=== PATIENT | female | born 1990 | race Caucasian/White ===

== ENCOUNTER 2019-05-06 04:50 | Inpatient (IN) | payer MEDICAID, SELFPAY ==
[2019-05-06] VITALS (24 sets, daily range): BP systolic 86–113; BP diastolic 37–77; PULSE 66–88; RESP 11–20; TEMP 36.1–37.1; O2SAT 97–100; BMI 38.7
[2019-05-06] MEDS: Lactated Ringers 1,000 ML 999 ML IV (05:03)
[2019-05-06 05:18] LABS: Absolute Lymphocyte Count 1.87 X10^3/uL (0.83-4.51); Absolute Neutrophil Count 6.6 X10^3/uL (2.0-7.7); Basophil# 0.02 X10^3/uL; Basophil% 0.2 % (0-1); Eosinophil# 0.07 X10^3/uL; Eosinophils% 0.8 % (0-5); Hematocrit 35.1 % (37-47); Hemoglobin 11.7 g/dL (12.0-15.0); Lymphocyte # 1.87 X10^3/ul (4.0); Mean Corp Hgb Conc 33.3 g/dL (32-36); Mean Corpuscular Hgb 29.3 pg (27.0-32.0); Monocyte# 0.67 X10^3/uL; Monocyte% 7.2 % (0-10); NRBC Flagged by Analyzer 0 % (0-5); Neutrophil # 6.57 X10^3/uL (2.7-7.7); Neutrophil % 70.4 % (47-70); Platelet Count 162 K/mm3 (150-450); RBC Distribution Width CV 15.3 % (11.6-14.6); RBC Distribution Width SD 48.9 fl (35.1-43.9); Red Blood Count 3.99 M/mm3 (4.2-5.4); White Blood Count 9.3 K/mm3 (4.4-11.0)
[2019-05-06] MEDS: Lactated Ringers 1,000 ML 150 ML IV (06:12)
--- NOTE | 2019-05-06 06:22 | NURSING ---
pt states she is unsure if she has her BTO authorization paperwork signed. this RN charted that the paperwork was not signed. Dr. Llamas updated on this.
[2019-05-06 06:51] LABS: Bedside Glucose 81 mg/dL (70-110)
[2019-05-06] MEDS: Sodium Citrate/Citric Acid 30 ML UDC PO (06:54)
[2019-05-06] MEDS: Cefazolin 2 GM in 0.9% Normal Saline 100 ML IV (07:24)
[2019-05-06] MEDS: Oxytocin 30 units/NS 500 ml 30 UNITS/500 ML IV.SOLN 167 UNITS IV (07:40)
[2019-05-06] MEDS: Ketorolac 30 MG/ML Syringe IV ×3 (08:22→18:40)
--- NOTE | 2019-05-06 08:27 | PCM.OPRPT ---
Report of Operation Date of Procedure: 05/06/19 Pre-Operative Diagnosis: Prior section Post-Operative Diagnosis: Same Surgery/Procedure Performed:: Repeat low transverse section Description of Surgical Findings:: Normal maternal uterus & adnexa. Thin lower uterine segment. Some scar tissue involving the bladder flap. basket assembler: Sully Childers Type of Anesthesia:: Spinal Special Medications: methylene blue - to back fill the bladder Specimen's removed: placenta Drains: gomez Estimated Blood Loss (mL): 700ml Fluids Replaced: 1200ml - Complications none - Admit VTE Documentation VTE Present on Admission: No VTE Mechan Device Prophylaxis: SCD's Delivery Classification: Scheduled Final KATI: 05/11/19 Gestational age: 39 Weeks and 2 Days Indications for : Repeat Elective Description of Procedure: Patient taken to OR where spinal was placed. She was prepped and draped in normal sterile fashion in a dorsal supine position with a leftward tilt. After ensuring adequacy of anesthesia the Pfannensteil skin incision was made and carried through to the underlying fascia with a bovie. The fascia was incised in the midline and carried laterally with the Artis scissors. The rectus muscles were in the midline and the peritoneum was entered bluntly. The bladder flap was dissected down carefully with the Metzenbaum scissors and blunt dissection. The uterus was incised in a transverse fashion and then incision extended with cephalocaudad traction. The fetus was vertex and the head was brought to the incision. With good fundal pressure the head easily delivered. The head was gently guided to allow delivery of anterior & posterior shoulders. No excess traction placed on head. The body delivered easily. The 3VC cord was clamped and cut (in delayed fashion) and the handed off to the waiting RN. The placenta was delivered w/ gentle traction and fundal massage and the uterus was exteriorized and cleared of all clots and debris. The uterine incision was closed with 2 x 1 vicryl suture in a running locked fashion. The bovie was used to further obtain further hemostasis of the uterine incision. 2 additional figure of 8 sutures were used to obtain excellent hemostasis. The bladder was back filled with 300ml methylene blue dyed saline to ensure bladder integrity. The uterus was returned to the peritoneal cavity. The pelvis was irrigated & then cleared of all clots and debris. The uterine incision was reexamined and found to be hemostatic. Some cassandra was placed over the uterine incision & bladder flap due to the denuded areas. The parietal peritoneum was reapproximated with running vicryl suture. The fascia was closed with looped PDS suture in a running standard fashion. The subcutaneous tissue was examined & any bleeding bovie cauterized. The subcutaneous tissue was reapproximated with plain gut suture. The skin was closed in a subcuticular fashion by the COIN DEALER with me present in the labor and delivery suite. I performed the remainder of the procedure w/ assistance. Amniotic Membrane Rupture Type: Artificial Amniotic Fluid Description: Clear Drain: Gomez to straight drain Cord Entanglement: None Cord Vessel Description: 3 Vessels Gender: Female (1 minute): 9 (5 minute): 9 Delayed cord clamping: Yes Pre-op Antibiotic Given: Ancef 2 grams IV x1
--- NOTE | 2019-05-06 08:31 | PCM.HP.OB ---
History Date of Admission: 09/11/17 Final KATI: 05/11/19 Gestational age: 39 Weeks and 2 Days History of this : This is a 29 year-old, G [], P [], at 39 weeks gestational age. Medical History: Medical History (Last Updated 05/06/19 @ 08:32 by Sylvester Palumbo) delivery delivered O82 Surgical History: Surgical History (Last Updated 05/06/19 @ 08:32 by Sylvester Palumbo) Hx of cholecystectomy Z90.49 Allergies No Known Allergies Allergy (Verified 05/06/19 05:18) Home Medications: Home Medications Vits [Prenatabs FA] 1 tablet PO DAILY 07/19/17 Ibuprofen [Motrin] 600 mg PO Q6H PRN #60 tablet 09/13/17 Smoking Status: Never smoker Alcohol: None History Past Pregnancies: Past Pregnancies Delivery Date Name GA/Weeks Outcome Route Weight Infant Gender Labor Length Anesthesia Delivery Location Provider FOB Labs: See [facility] H[facility]P Physical Exam General: Alert, Oriented x3 Cardiovascular: Regular rate, Regular Rhythm Lungs: Clear to auscultation, Normal air movement Abdomen: Soft, Non Tender, Non-Distended Extremities:: No edema Neurological: Cranial nerves II-XII grossly intact Estimated gestational size: Appropriate for gestational size Assessment/Plan This is a 29 year-old female at 39&3 weeks gestational age. Admit to L&D Plan for repeat section
[2019-05-06] MEDS: Lactated Ringers 1,000 ML 100 ML IV ×3 (09:00→16:31)
--- NOTE | 2019-05-06 11:15 | NURSING ---
Pt low BP. Called Dr. Palumbo with update of BP and no vaginal bleeding. Order to give pt 1000ml bolus of LR over 2 hours and then continue at ordered rate of 100ml/hr.
--- NOTE | 2019-05-06 15:10 | CASEMGMT ---
Social Work Referral Date: 05/06/19 Date of Assessment: 05/06/19 Reason for Consult: Mother of baby (MOB) with a History of Anxiety Informant: Nursing staff, Chart Personal Status Mentation: MOB A&Ox3 Present during assessment: MOB, Father of Baby (FOB) and . Hx : 4 Hx Para: 2 Gender: Female Name: Coleen James (1min): 9 (5min): 9 Care: Late - due to insurance per MOB Alleged father: Jackson James Alleged father involved: Yes Length of Relationship with alleged father of baby: 3 years with being for the past year. FOB Mental Health/AOD/Domestic Violence Hx: FOB with a history of schizophrenia that has been managed well with medication per MOB and FOB. FOB reporting to smoke tobacco, but to smoke outside only. FOB Employment: FOB is currently on disability. Number of Children in the home: This will be fourth child for MOB. Shakira age 9, and Марина and Gina (twins) that are 19months old. Custody Comments: MOB has custody of all children. Марина and Gina share paternity with this . Shakira's father has visitations. MOB reporting no concerns with dynamics with Shakira's father. Living Arrangements: MOB, FOB, and children all live in a private home. Education: High School Diploma Employment: Unemployed, main source of income is FOB's disability. Family Dynamics/Relationships: MOB reporting positive relationships and supports Supports: MOB identifying FOB and family as supportive. MOB reporting that FOB's family comes every month for a week to help with the children. Transportation: NO transportation concerns. Substance Abuse Hx and Current Pattern of Use MOB denies any Alcohol, Methamphetamine, Cocaine, Marijuana, Prescriptions Drugs, Tobacco, and Heroin use. Mental Health Hx and Current Status MOB reporting to have a history of anxiety but that symptoms have resolved for some time. Items/Skills List for Infants Care Supplies: MOB reporting to have all needed supplies (crib, car seat, infant clothing, etc.) Bonding With Infant: MOB reporting to be feeling a connection with infant. Observed Maternal/Paternal Child interaction: MOB holding infant during assessment. MOB gazing at infant often. Emotional Assessment: MOB presenting with a positive affect. MOB engaged in conversation. FOB also engaged in conversation and reporting a connection with infant. Control: MOB wanting to have a tubal completed and plans to follow up with physician on getting this completed. Resources JFS: [place] [employer] insurance. WIC: Already established with. People to People: n/a Community Action: n/a Help Me Grow: Declining referral Children Protective Services Hx: No history Intervention: Social Work assessment Assessment Met with MOB, FOB and in room. MOB reporting to be excited about having infant in family. MOB reporting that was not planned but accepted. MOB and FOB reporting no concerns with returning to home. MOB reporting that anxiety symptoms have now resolved for several years. MOB with no mental health concerns. This socia worker educating MOB on risk for depression signs and symptoms. Support provided throughout assessment. Nursing staff notified of social work specialist assessment. Plan: Infant and MOB to discharge to home with FOB and other children. Kwaku Del Valle MSW, JOHN
[2019-05-06] MEDS: Senna/Docusate Sodium 1 Tablet PO (22:05)
[2019-05-07] VITALS (9 sets, daily range): BP systolic 91–111; BP diastolic 50–62; PULSE 71–108; RESP 14–18; TEMP 36.1–36.9; O2SAT 97–99
[2019-05-07] MEDS: Ketorolac 30 MG/ML Syringe IV ×3 (00:06→12:05)
[2019-05-07 05:15] LABS: Hematocrit 32.3 % (37-47); Hemoglobin 10.5 g/dL (12.0-15.0); Mean Corp Hgb Conc 32.5 g/dL (32-36); Mean Corpuscular Hgb 29.1 pg (27.0-32.0); Mean Corpuscular Volume 89.5 fL (81-99); Mean Platelet Vol. 9.4 fl (6.2-12.0); Platelet Count 135 K/mm3 (150-450); RBC Distribution Width CV 15.5 % (11.6-14.6); RBC Distribution Width SD 50.5 fl (35.1-43.9); Red Blood Count 3.61 M/mm3 (4.2-5.4); White Blood Count 8.2 K/mm3 (4.4-11.0)
[2019-05-07] MEDS: 0.9% Saline Lock 10 ML Syringe IV ×2 (05:16→12:05)
[2019-05-07] MEDS: Acetaminophen 500 MG Tablet 1000 MG PO (05:17)
--- NOTE | 2019-05-07 06:41 | PCM.PN.OB ---
Subjective: Pain mostly controlled. Denies concerns. - Physical Exam General: Alert, Oriented x3 Abdomen: Soft, Non Tender, Non-Distended - ff mid & below; inc - bandage c/d/i Extremities: No Calf Tenderness Neurological: Cranial nerves II-XII grossly intact Vital Signs Temp Pulse Resp BP Pulse Ox 97.2 F L 81 18 91/62 99 05/07/19 05:00 05/07/19 05:21 05/07/19 05:21 05/07/19 05:00 05/07/19 05:21 Oxygen Delivery Method Room Air Weight: 218 lb 6.4 oz Body Mass Index (BMI) 38.7 Intake and Output for Last 24 Hours 05/05/19 05/06/19 05/07/19 23:59 23:59 23:59 Intake Total 3294 / 3294 934 / 934 Output Total 1150 / 1150 1200 / 1200 Balance 2144 / 2144 -266 / -266 Laboratory Tests Past 24 Hrs 05/07/19 05:07 WBC 8.2 RBC 3.61 L Hgb 10.5 L Hct 32.3 L MCV 89.5 MCH 29.1 MCHC 32.5 RDW Std Deviation 50.5 H RDW Coeff of Grady 15.5 H Plt Count 135 L MPV 9.4 POC Glucose 05/06/19 06:46 POC Glucose 81 Medical Necessity - Tobacco Use Smoking Status: Never smoker Assessment/Plan POD#1 HEME - cbc reviewed GI - ADAT RAUL - gomez, adequate UOP Routine care
[2019-05-07] MEDS: Docusate Sodium 100 MG Capsule PO (10:31)
[2019-05-07] MEDS: Senna/Docusate Sodium 1 Tablet PO (10:31)
[2019-05-07] MEDS: oxyCODONE 5 MG Tablet PO ×3 (10:38→21:31)
[2019-05-07] MEDS: Naproxen 250 MG Tablet PO (20:13)
[2019-05-08 01:30] VITALS: BP 90/46; PULSE 71; RESP 16; TEMP 36.5
[2019-05-08] MEDS: Senna/Docusate Sodium 1 Tablet PO ×2 (01:40→08:43)
[2019-05-08] MEDS: oxyCODONE 5 MG Tablet PO ×3 (01:40→13:02)
--- NOTE | 2019-05-08 08:31 | PCM.PN.OB ---
Subjective: Pain well controlled. Average lochia. Tolerating regular diet. Positive flatus, no bowel movement yet. Ambulating without difficulty. - Physical Exam General: Alert, Cooperative, No apparent distress Abdomen: Soft, Distended - Mildly, softly, Tender - Appropriately Extremities: Edema - 1+ Skin: Incision - Bandage is clean dry and intact Vital Signs Temp Pulse Resp BP Pulse Ox 97.7 F L 71 16 90/46 L 98 05/08/19 01:30 05/08/19 01:30 05/08/19 01:30 05/08/19 01:30 05/07/19 13:31 Oxygen Delivery Method Room Air Weight: 99.065 kg Body Mass Index (BMI) 38.7 Intake and Output for Last 24 Hours 05/06/19 05/07/19 05/08/19 23:59 23:59 23:59 Intake Total 3294 / 3294 934 / 934 Output Total 1150 / 1150 1600 / 1600 Balance 2144 / 2144 -666 / -666 Medical Necessity - Tobacco Use Smoking Status: Never smoker Assessment/Plan Postoperative day #2 status post repeat . Patient and are doing well. is bottlefeeding. Offered patient to discharge home today, will see how she is doing after lunch.
[2019-05-08 08:40] VITALS: BP 102/48; PULSE 83; RESP 16; TEMP 36.7; O2SAT 97
[2019-05-08 13:53] VITALS: BP 107/60; PULSE 88; RESP 16; TEMP 36.9; O2SAT 97
--- NOTE | 2019-05-08 17:56 | DCINST_ITS ---
Discharge Diet: No Restrictions Discharge Activity: Return to Normal Activity, May Not Drive - for 2 weeks, May not drive while taking narcotic pain medications., May Shower, May Take a Tub Bath - in 7 days. May resume sexual activity in: 4-6 weeks Lifting Restrictions: 20 pounds Additional Activity Instructions:: Nothing in the vagina for 4-6 weeks. You may return to work/school in 6 weeks. Call your doctor if your incision/area has: Continuous Slow Oozing, Sudden Increased Bleeding, Increased Pain/ Swelling, Increased Redness, Foul Smelling Discharge Call your doctor if you observe: Fever of 101 or Higher, Using more than one pad per hour - for 2 hours Suture Line Care: Avoid Pulling/Pushing, Avoid Pinching/Bending Cleanse incision/area with: Keep Dressing Clean & Dry Additional Instructions: If you experience any of the following, contact your healthcare provider. * Bleeding that soaks a pad every hour for 2 hours * Fever 100.4 or higher * Unrelieved incision or abdominal pain * Swelling, redness, discharge or bleeding from your incision or episiotomy site * Your incision begins to separate * Problems urinating (including inability to urinate or burning while urinating). * Visual changes * Severe headache * Flu-like symptoms * Pain or redness in one of both of your breasts * Pain, warmth, tenderness or swelling in your legs, especially the calf area * Frequent nausea and vomiting * Symptoms of depression or anxiety If you experience any of the following, call 911 or go to the nearest Emergency Room. * Chest pain * Problems breathing * Seizure activity * Partial or complete paralysis of a body part, slurred speech, weakness or drooping of the face, or a sudden inability to walk or hold your balance Allergies/Adverse Reactions: Allergies No Known Allergies Allergy (Verified 05/06/19 05:18) Medications to take at Discharge Vits [Prenatabs FA] 1 tablet PO DAILY 07/19/17 Acetaminophen [Tactinal] 1,000 mg PO Q6H PRN PRN #40 tab 05/08/19 Ibuprofen [Motrin] 600 mg PO Q6H PRN #60 tab 05/08/19 Oxycodone [Oxyir] 5 - 10 mg PO Q8 PRN 7 Days #28 tablet 05/08/19 The following prescriptions were given: Ibuprofen [Motrin] 600 mg PO Q6H PRN #60 tab PRN Reason: Pain Transmission Status: Pending to [id number] Oxycodone [Oxyir] 5 - 10 mg PO Q8 PRN 7 Days #28 tablet PRN Reason: Severe Pain (-07/24) Transmission Status: Received by [id number] Acetaminophen [Tactinal] 1,000 mg PO Q6H PRN PRN #40 tab PRN Reason: Mild Pain (-12/22) Transmission Status: Pending to [id number] Follow-Up: Call to make an appointment with your doctor for an incision check in 1-2 weeks. You will also need a 6 week post- follow up appointment. Test results from this visit will be discussed in further detail at your follow- up appointment, if applicable. Please Follow Up With: Sylvester Palumbo - Call to make an appointment for an incision check in 1-2 [phone] When: You will need a post check in 6 weeks. Primary Care Physician: Dakota Sanchez DO [Primary Care Provider] -
--- NOTE | 2019-05-08 17:57 | PCM.DC.SUM ---
Discharge Date and Diagnosis Date of Admission: 09/11/17 Date of Discharge: 05/08/19 Hospital Course and Treatment Operations: - - repeat LTCS Procedures: None Summary of Care Provided: The patient is a 29 year old who presented for repeat c/s at 39 weeks. This was performed without difficulty. She had mild acute blood loss anemia appropriate for blood loss during the surgery. By postoperative day #2 she was ambulating, urinating tolerating regular diet without difficulty. She was discharged home with routine instructions and prescriptions. She is to follow-up in the office in 1-2 in 6 weeks or as needed. [] - Physical Exam Vital Signs Temp Pulse Resp BP Pulse Ox 98.4 F 88 16 107/60 97 05/08/19 13:53 05/08/19 13:53 05/08/19 13:53 05/08/19 13:53 05/08/19 13:53 Oxygen Delivery Method Room Air Weight: 99.065 kg Body Mass Index (BMI) 38.7 Intake and Output for Last 24 Hours 05/06/19 05/07/19 05/08/19 23:59 23:59 23:59 Intake Total 3294 / 3294 934 / 934 Output Total 1150 / 1150 1600 / 1600 Balance 2144 / 2144 -666 / -666 Discharge Diet: No Restrictions Discharge Activity: Return to Normal Activity, May Not Drive - for 2 weeks, May not drive while taking narcotic pain medications., May Shower, May Take a Tub Bath - in 7 days. May resume sexual activity in: 4-6 weeks Additional Activity Instructions:: Nothing in the vagina for 4-6 weeks. You may return to work/school in 6 weeks. Call your doctor if your incision/area has: Continuous Slow Oozing, Sudden Increased Bleeding, Increased Pain/ Swelling, Increased Redness, Foul Smelling Discharge Call your doctor if you observe: Fever of 101 or Higher, Using more than one pad per hour - for 2 hours Suture Line Care: Avoid Pulling/Pushing, Avoid Pinching/Bending Cleanse incision/area with: Keep Dressing Clean & Dry Home Medications: Medications to take at Discharge Vits [Prenatabs FA] 1 tablet PO DAILY 07/19/17 Acetaminophen [Tactinal] 1,000 mg PO Q6H PRN PRN #40 tab 07/25/19 Ibuprofen [Motrin] 600 mg PO Q6H PRN #60 tab 05/08/19 Oxycodone [Oxyir] 5 - 10 mg PO Q8 PRN 7 Days #28 tab 05/08/19 Following Prescrptions Were Given to Patient: Ibuprofen [Motrin] 600 mg PO Q6H PRN #60 tab PRN Reason: Pain Transmission Status: [id number] Oxycodone [Oxyir] 5 - 10 mg PO Q8 PRN 7 Days #28 tab PRN Reason: Severe Pain (6-07/24) Transmission Status: Received by [id number] Acetaminophen [Tactinal] 1,000 mg PO Q6H PRN PRN #40 tab PRN Reason: Mild Pain (-12/22) Transmission Status: [id number] Primary Care Physician: Dakota Sanchez DO [Primary Care Provider] - Please Follow Up With: Sylvester Palumbo - Call to make an appointment for an incision check in 1-2 [phone] When: You will need a post check in 6 weeks. Please Follow Up With: Sylvester Palumbo When: Please call office for appointment in 6 weeks. Medical Necessity - Tobacco Use Smoking Status: Never smoker Meaningful Use Info Meaningful Use Diagnoses (Choose all that apply): None applicable
--- NOTE | 2019-05-12 19:55 | NURSING ---
follow up call done, patient doing well, denies needs or questions
== END 2019-05-08 16:43 | disposition home or self-care (01) | DRG 540 ==
PROVIDERS: Obstetrics & Gynecology; Admitting Provider Obstetrics & Gynecology; Family Provider Student in an Organized Health Care Education/Training Program; PCP Student in an Organized Health Care Education/Training Program; Referring Provider Obstetrics & Gynecology; Visit Provider Obstetrics & Gynecology
PROC: 10D00Z1 Extraction of Products of Conception, Low, Open Approach (ICD-10-PCS; CPT 59514; principal; 2019-05-06 07:00)
DX: O34.211 Maternal care for low transverse scar from previous cesarean delivery (principal); O90.81 Anemia of the puerperium; D62 Acute posthemorrhagic anemia; Z90.49 Acquired absence of other specified parts of digestive tract; Z3A.39 39 weeks gestation of pregnancy; Z37.0 Single live birth
CPT/HCPCS: 82962; 85025; 85027; 86850; 86900; 99218; J7120; A4216; G0378; J2405; Q9968

== ENCOUNTER 2021-02-09 17:34 | Observation (INO) | payer MEDICAID, SELFPAY ==
[2019-05-06 05:24] VITALS: BMI 38.7
[2021-02-09 17:34] VITALS: BP 142/82; PULSE 91; RESP 16; TEMP 36.9; O2SAT 99; BMI 30.1
--- NOTE | 2021-02-09 17:58 | CT_ITS ---
STUDY: CT ABDOMEN AND PELVIS WITH CONTRAST REASON FOR EXAM: Female, 30 years old. Intermittent abdominal pain since Sunday. Pain now radiates into the right side. RADIATION DOSAGE (If Supplied By Facility): CTDIvol = ( 15.59 ) mGy, DLP = ( 1011.07 ) mGycm TECHNIQUE: Transaxial images were obtained from the dome of the diaphragm to the symphysis pubis without oral contrast. IV 100mL Isovue-370 was administered. Sagittal and coronal images were reconstructed. Individualized dose optimization techniques were used for this CT. COMPARISON: None. FINDINGS: The visualized lung bases are unremarkable. The visualized portions of the heart are within normal limits. Normal liver. There are surgical clips in the gallbladder fossa consistent with a prior cholecystectomy. Normal spleen. Normal pancreas. Normal bilateral adrenal glands. Normal right kidney. Normal left kidney. Abnormal visualized ureters. Normal visualized stomach. Normal small intestine. Normal colon. The appendix is visualized and appears normal. Normal abdominal aorta. Normal inferior vena cava. Normal retroperitoneum. Normal urinary bladder. Uterus is anteverted and contains an IUD. There are multiple follicles in both ovaries. There is no pelvic lymphadenopathy.. Minimal free fluid in the posterior cul-de-sac, thought to be physiologic. There is no free air within the abdominal cavity. Large umbilical hernia of omental fat with mild stranding. Question incarceration. Normal osseous structures. CT/Abdomen/Pelvis W IV Cont ONLY IMPRESSION: 1. Large periumbilical hernia. There is mild stranding. Mild incarceration cannot be completely ruled out. 2. Otherwise normal CT of the abdomen and pelvis. Electronically Signed: Atilio Valdez DO at 19:12 EDT Tel [phone], Service support ,
--- NOTE | 2021-02-09 17:59 | ED.VIS.GI ---
HPI HPI - GI History of Present Illness Chief Complaint: Abd Pain Informant: patient Narrative Narrative: Patient presents with abdominal pain. She has had this for about 4 days. She describes sharp pains in her epigastric region that radiates to the right side of her abdomen. She has had nausea without vomiting. No diarrhea or constipation she denies any dysuria or hematuria. She has a history of pancreatitis which she thought was due to her gallbladder so she had a cholecystectomy a few years ago. She took ibuprofen without any relief. She has had no fevers. She denies any pain in her back. PFSH PFSH Medical History (Updated 02/09/21 @ 20:[address] Rafi Durant MD) Anxiety delivery delivered Frequent headaches Pancreatitis Home Medications vit,[id number] [Prenatabs FA] 1 tab PO DAILY 07/19/17 [History Last Taken 05/05/19 08:00] acetaminophen 1,000 mg PO Q6H PRN PRN #40 tab 05/08/19 [Rx Last Taken Unknown] ibuprofen 600 mg PO Q6H PRN #60 tab 05/08/19 [Rx Last Taken Unknown] Allergy/AdvReac Type Severity Reaction Status Date / Time No Known Allergies Allergy Verified 05/06/19 05:18 Surgical History (Updated 02/09/21 @ 18:14 by Lulú Xavier) Hx of cholecystectomy Social History Smoking Status: Never smoker ROS ROS ED Constitutional Constitutional ED: Denies chills or fever(s) Eyes Eyes: Denies blurry vision or change in vision ENT ENT ED: Denies ear pain, rhinorrhea or sore throat Cardiovascular Cardiovascular: Denies chest pain or palpitations Respiratory/Chest Respiratory/Chest: Denies cough, dyspnea or sputum Gastrointestinal Gastrointestinal: Reports abdominal pain and nausea Genitourinary Genitourinary ED: Denies dysuria, hematuria or urinary frequency Musculoskeletal Musculoskeletal: Denies back pain or neck pain Integumentary Denies change in pigmentation or rash Neurologic Neurologic: Denies headache(s), numbness or weakness Psychiatric Psychiatric: Denies anxiety or depression Endocrine Endocrinology: Denies polydipsia or polyuria EXAM Physical Exam Const Vital Signs: 02/09/21 17:34 Temperature 98.4 F Temperature Source Temporal Pulse Rate 91 Respiratory Rate 16 Blood Pressure 142/82 H Blood Pressure Mean 102 Pulse Ox 99 Oxygen Delivery Method Room Air Positive well nourished and well developed General Appearance ED: well developed and NAD HEENT Reports moist mucous membranes normocephalic and atraumatic; Negative for tenderness Eyes PERRL and EOMs intact bilaterally Neck supple and no JVD Chest Wall Chest: Negative for tenderness Resp normal respiratory effort and clear to auscultation bilaterally Effort and Inspection: Negative for respiratory distress Cardio regular rate and regular rhythm; Negative for no murmurs GI soft to palpation and non-distended Palpation: soft and tender epigastric and RUQ Back/Spine no CVA tenderness and no thoracic nor lumbar tenderness Cervical Spine: Negative for cervical spine tenderness Extremity normal to inspection General Extremety ED: Negative for tenderness Neuro oriented x3, CN's II-XII intact bilaterally and no sensory deficits noted Sensorium / Orientation: awake and alert Motor Exam: strength 5/5 throughout Psych mental status grossly normal Skin no rashes or lesions noted MDM MDM MDM Narrative Medical decision making narrative: Patient was given morphine and Zofran. Laboratory studies show a normal white blood cell count. Urinalysis is negative for infection. Glucose is 135 otherwise electrolytes are unremarkable. CAT scan reveals an incarcerated periumbilical hernia. I attempted to reduce this at bedside. However she was having pain with this. I did speak with Dr. Sandhu who evaluated the patient and will admit her for surgery tomorrow. Lab Data Labs: Laboratory Results - last 24 hr 02/09/21 02/09/21 02/09/21 18:05 18:05 18:10 WBC 10.1 RBC 4.37 Hgb 12.4 Hct 37.7 MCV 86.3 MCH 28.4 MCHC 32.9 RDW Std Deviation 42.6 RDW Coeff of Grady 13.5 Plt Count 281 MPV 10.0 Immature Gran % (Auto) 0.500 Neut % (Auto) 72.5 H Lymph % (Auto) 20.3 [place] % (Auto) 5.0 Eos % (Auto) 1.4 Baso % (Auto) 0.3 Absolute Neuts (auto) 7.3 Absolute Lymphs (auto) 2.04 Nucleated RBC % 0 Sodium Potassium Chloride Carbon Dioxide Anion Gap BUN Creatinine Estim Creat Clear Calc Est GFR (MDRD) Af Amer Est GFR (MDRD) Non-Af BUN/Creatinine Ratio Glucose Calcium Total Bilirubin Direct Bilirubin AST ALT Alkaline Phosphatase Total Protein Albumin Globulin Lipase Urine Color Yellow Urine Clarity Clear Urine pH 6.0 Ur Specific [place] 1.020 Urine Protein Negative Urine Glucose (UA) Normal Urine Ketones Negative Urine Occult Blood 25 H Urine Nitrite Negative Urine Bilirubin Negative Urine Urobilinogen Normal Ur Leukocyte Esterase Negative Urine RBC 0 SEEN Urine WBC 0-5 SEEN Ur Squamous Epith Cells 0-5 SEEN Urine Bacteria 2+ Urine Mucus 0 SEEN Urine Test Negative 02/09/21 18:10 WBC RBC Hgb Hct MCV MCH MCHC RDW Std Deviation RDW Coeff of Grady Plt Count MPV Immature Gran % (Auto) Neut % (Auto) Lymph % (Auto) [place] % (Auto) Eos % (Auto) Baso % (Auto) Absolute Neuts (auto) Absolute Lymphs (auto) Nucleated RBC % Sodium 139 Potassium 3.4 L Chloride 107 Carbon Dioxide 28.0 Anion Gap 4 L BUN 11 Creatinine 0.78 Estim Creat Clear Calc 86.45 Est GFR (MDRD) Af Amer 111 Est GFR (MDRD) Non-Af 91 BUN/Creatinine Ratio 14.2 Glucose 135 H Calcium 8.6 Total Bilirubin 0.90 Direct Bilirubin 0.23 AST 13 L ALT 29 Alkaline Phosphatase 78 Total Protein 7.2 Albumin 3.7 Globulin 3.5 Lipase 65 L Urine Color Urine Clarity Urine pH Ur Specific [place] Urine Protein Urine Glucose (UA) Urine Ketones Urine Occult Blood Urine Nitrite Urine Bilirubin Urine Urobilinogen Ur Leukocyte Esterase Urine RBC Urine WBC Ur Squamous Epith Cells Urine Bacteria Urine Mucus Urine Test Radiography Diagnostic Testing: Radiology Impression Abdomen/Pelvis CT 02/09/21 17:58 IMPRESSION: 1. Large periumbilical hernia. There is mild stranding. Mild incarceration cannot be completely ruled out. 2. Otherwise normal CT of the abdomen and pelvis. Electronically Signed: Atilio Valdez DO at 19:12 EDT Tel [phone], Service support , Discharge Plan Triage Chief Complaint: Abd Pain ED Provider: Rafi Durant Dx/Rx/DC Orders Clinical Impression: Incarcerated umbilical hernia Prescriptions: No Action vit,[id number] [Prenatabs FA] 1 TABLET tablet 1 tab PO DAILY RF: 0 acetaminophen 500 MG tablet 1,000 mg PO Q6H PRN PRN (Reason: Mild Pain (1-3/10)) Qty: 40 RF: 1 ibuprofen 600 MG tablet 600 mg PO Q6H PRN (Reason: Pain) Qty: 60 RF: 1 Primary Care Provider: Dakota Sanchez Referrals: Dakota Sanchez DO [Primary Care Provider] - Disposition Disposition: [facility]
[2021-02-09] MEDS: Morphine 4 MG/ML Syringe IV ×2 (18:10→21:53)
[2021-02-09] MEDS: Ondansetron 4 MG/2 ML Vial IV (18:10)
[2021-02-09 18:22] LABS: Mucous, Urine 0 SEEN /hpf (<or=2+); Red Blood Cells-Urine 0 SEEN /hpf (0-5)
[2021-02-09 18:24] LABS: Absolute Lymphocyte Count 2.04 X10^3/uL (0.83-4.51); Absolute Neutrophil Count 7.3 X10^3/uL (2.0-7.7); Basophil# 0.03 X10^3/uL; Basophil% 0.3 % (0-1); Eosinophil# 0.14 X10^3/uL; Eosinophils% 1.4 % (0-5); Hematocrit 37.7 % (37-47); Hemoglobin 12.4 g/dL (12.0-15.0); Lymphocyte # 2.04 X10^3/ul (0.83-4.51); Lymphocyte % 20.3 % (19-41); Mean Corp Hgb Conc 32.9 g/dL (32-36); Mean Corpuscular Hgb 28.4 pg (27.0-32.0); Mean Corpuscular Volume 86.3 fL (81-99); NRBC Flagged by Analyzer 0 % (0-5); Neutrophil # 7.31 X10^3/uL (2.7-7.7); Neutrophil % 72.5 % (47-70); Platelet Count 281 K/mm3 (150-450); RBC Distribution Width CV 13.5 % (11.6-14.6); RBC Distribution Width SD 42.6 fl (35.1-43.9); Red Blood Count 4.37 M/mm3 (4.2-5.4); White Blood Count 10.1 K/mm3 (4.4-11.0)
[2021-02-09 18:25] LABS: Color, Urine Yellow (Yellow); Glucose, Dipstick Normal (Normal); Ketone-Dipstick Negative (Negative); Leukocyte Esterase-Dipstick Negative /ul (Negative); Nitrite-Dipstick Negative (Negative); Occult Blood-Urine 25 /ul (Negative); Protein-Dipstick Negative (Negative); Urine Bilirubin Dipstick Negative (Negative); Urine Clarity Clear (Clear); Urine Urobilinogen Normal (Normal)
[2021-02-09 18:28] LABS: Internal QC Validated? YES +Cl - CLEAR BKGD; Pregnancy, Urine Negative Negative
[2021-02-09 18:32] LABS: Bacteria 2+ /hpf (None Seen); Squamous Epithelial Cells - UA 0-5 SEEN /hpf (5-10); White Blood Cells 0-5 SEEN /hpf (0-5)
[2021-02-09 18:40] LABS: AST(SGOT) 13 U/L (15-37); Alanine Aminotransfer ALT/SGPT 29 U/L (13-56); Albumin, Serum 3.7 g/dL (3.2-5.0); Alkaline Phosphatase 78 U/L (45-117); Anion Gap 4 (5-15); BUN 11 mg/dL (7-18); BUN/Creat Ratio 14.2 RATIO (10-20); Bilirubin, Direct 0.23 mg/dL (0.00-0.30); Calcium,Total 8.6 mg/dL (8.5-10.1); Chloride 107 mmol/L (98-107); Creatinine, Serum 0.78 mg/dL (0.55-1.02); EST Glomerular Filtration Rate 91 mL/min (>60); Est Glom Filt Rate - Afr Amer 111 mL/min (>60); Estimated Creatinine Clearance 86.45 ml/min; Globulin 3.5 g/dL (2.2-4.2); Glucose 135 mg/dL (74-106); Lipase 65 U/L (73-393); Potassium 3.4 mmol/L (3.5-5.1); Protein, Total 7.2 g/dL (6.4-8.2); Sodium Level 139 mmol/L (136-145)
--- NOTE | 2021-02-09 20:44 | PCM.HP.STD ---
HPI - General HPI Narrative EDITH BAXTER, is a 30 F who presents with abdominal pain. The patient reports for the last few months has been having abdominal pain and thought it was her pancreas as she has a history of pancreatic problems. The patient localizes the pain to just above her umbilicus. She has not had any nausea or vomiting. She reports the pain has been much worse over the last few days. She has no fevers or chills. No diarrhea or constipation. No radiation of pain. [facility] Medical History (Updated 02/09/21 @ 20:[address] Eder Sandhu MD) Anxiety Frequent headaches Pancreatitis Home Medications ibuprofen 400 mg PO DAILY PRN PRN 02/09/21 [History Last Taken 02/09/21] Allergy/AdvReac Type Severity Reaction Status Date / Time No Known Allergies Allergy Verified 05/06/19 05:18 Family History (Updated 02/09/21 @ 20:[address] Eder Sandhu MD) Mother No problems noted. Surgical History (Updated 02/09/21 @ 20:[address] Eder Sandhu MD) delivery delivered Hx of cholecystectomy Social History Smoking Status: Never smoker ROS Constitutional Constitutional: Denies chills or fever(s) Cardiovascular Cardiovascular: Denies chest pain or chest pain at rest Respiratory/Chest Respiratory/Chest: Denies cough Gastrointestinal Gastrointestinal: Reports abdominal pain; Denies change in bowel habits, constipation, diarrhea, melena, nausea or vomiting Genitourinary Genitourinary: Denies change in urinary stream Musculoskeletal Musculoskeletal: Denies back pain Integumentary Integumentary: Denies jaundice Neurologic Neurologic: Denies dizziness Vital Signs Vital Signs Vital Signs: 02/09/21 17:34 Temperature 98.4 F Temperature Source Temporal Pulse Rate 91 Respiratory Rate 16 Blood Pressure 142/82 H Blood Pressure Mean 102 Pulse Ox 99 Oxygen Delivery Method Room Air Physical Exam Const oriented x3 and no apparent distress Eyes PERRL Neck General: normal visual inspection Lymph Lymphatic: no lymphadenopathy noted Chest inspection of chest normal Resp normal respiratory effort Cardio regular rate and regular rhythm GI GI Narrative: The patient has a ventral hernia superior to the umbilicus. This was able to be reduced Extremity normal to inspection Skin no rashes or lesions noted Neuro CN's II-XII intact bilaterally Psych mental status grossly normal Lab / Micro Data Result Diagrams: 02/09/21 18:10 02/09/21 18:10 Labs: Laboratory Results - last 24 hr 02/09/21 02/09/21 02/09/21 18:05 18:05 18:10 WBC 10.1 RBC 4.37 Hgb 12.4 Hct 37.7 MCV 86.3 MCH 28.4 MCHC 32.9 RDW Std Deviation 42.6 RDW Coeff of Grady 13.5 Plt Count 281 MPV 10.0 Immature Gran % (Auto) 0.500 Neut % (Auto) 72.5 H Lymph % (Auto) 20.3 [place] % (Auto) 5.0 Eos % (Auto) 1.4 Baso % (Auto) 0.3 Absolute Neuts (auto) 7.3 Absolute Lymphs (auto) 2.04 Nucleated RBC % 0 Sodium Potassium Chloride Carbon Dioxide Anion Gap BUN Creatinine Estim Creat Clear Calc Est GFR (MDRD) Af Amer Est GFR (MDRD) Non-Af BUN/Creatinine Ratio Glucose Calcium Total Bilirubin Direct Bilirubin AST ALT Alkaline Phosphatase Total Protein Albumin Globulin Lipase Urine Color Yellow Urine Clarity Clear Urine pH 6.0 Ur Specific [place] 1.020 Urine Protein Negative Urine Glucose (UA) Normal Urine Ketones Negative Urine Occult Blood 25 H Urine Nitrite Negative Urine Bilirubin Negative Urine Urobilinogen Normal Ur Leukocyte Esterase Negative Urine RBC 0 SEEN Urine WBC 0-5 SEEN Ur Squamous Epith Cells 0-5 SEEN Urine Bacteria 2+ Urine Mucus 0 SEEN Urine Test Negative 02/09/21 18:10 WBC RBC Hgb Hct MCV MCH MCHC RDW Std Deviation RDW Coeff of Grady Plt Count MPV Immature Gran % (Auto) Neut % (Auto) Lymph % (Auto) [place] % (Auto) Eos % (Auto) Baso % (Auto) Absolute Neuts (auto) Absolute Lymphs (auto) Nucleated RBC % Sodium 139 Potassium 3.4 L Chloride 107 Carbon Dioxide 28.0 Anion Gap 4 L BUN 11 Creatinine 0.78 Estim Creat Clear Calc 86.45 Est GFR (MDRD) Af Amer 111 Est GFR (MDRD) Non-Af 91 BUN/Creatinine Ratio 14.2 Glucose 135 H Calcium 8.6 Total Bilirubin 0.90 Direct Bilirubin 0.23 AST 13 L ALT 29 Alkaline Phosphatase 78 Total Protein 7.2 Albumin 3.7 Globulin 3.5 Lipase 65 L Urine Color Urine Clarity Urine pH Ur Specific [place] Urine Protein Urine Glucose (UA) Urine Ketones Urine Occult Blood Urine Nitrite Urine Bilirubin Urine Urobilinogen Ur Leukocyte Esterase Urine RBC Urine WBC Ur Squamous Epith Cells Urine Bacteria Urine Mucus Urine Test Radiology Impression Abdomen/Pelvis CT 02/09/21 17:58 IMPRESSION: 1. Large periumbilical hernia. There is mild stranding. Mild incarceration cannot be completely ruled out. 2. Otherwise normal CT of the abdomen and pelvis. Electronically Signed: Atilio Valdez DO at 19:12 EDT Tel [phone], Service support , Assessment & Plan Assessment/Plan (1) Ventral hernia: Status: Acute Code(s): K43.9 - Ventral hernia without obstruction or gangrene Qualifiers: Obstruction and gangrene presence: without obstruction or gangrene Qualified Code(s): K43.9 - Ventral hernia without obstruction or gangrene Plan: The patient had a ventral hernia on CT scan with some stranding and he is contained fat. The omental fat was able to be reduced. The patient says that she has been having problems for months and would like this repaired. I will admit the patient and repair tomorrow as I believe that she is at high likelihood for reincarcerating this omentum into the hernia. I discussed ventral hernia repair with mesh. I will take a laparoscopic hybrid approach and open the abdominal wall to reduce the hernia and remove the hernia sac and then place a port and laparoscopically place mesh to supplement the repair. I discussed the procedure in detail the patient as well as the risks including not limited to bleeding, infection, injury to underlying organs such as the bowel. I also discussed the increased risk of mesh infection if done in the acute phase as well as risk of conversion to open hernia repair. Patient understands the risks and is willing proceed. I will admit the patient and perform surgery tomorrow. Eder Sandhu MD Pager: [facility] [address] [place] [address], [address] [place] [address] Office:
[2021-02-09 20:48] VITALS: BP 142/82; PULSE 91; RESP 16; TEMP 36.9; O2SAT 99
[2021-02-09 21:04] VITALS: BMI 37.4
[2021-02-09 21:06] VITALS: BP 114/71; PULSE 64; RESP 16; TEMP 36.7; O2SAT 100
[2021-02-09] MEDS: 0.9% Normal Saline 1,000 ML 125 ML IV (21:38)
[2021-02-09] MEDS: Potassium Chloride 10mEq/100mL 10 MEQ/100 ML IV.SOLN. 100 MEQ IV BOLUS ×2 (21:40→22:49)
[2021-02-09] MEDS: 0.9% Saline Lock 10 ML Syringe IV (21:52)
[2021-02-10] VITALS (11 sets, daily range): BP systolic 88–110; BP diastolic 46–85; PULSE 60–83; RESP 16–18; TEMP 36.2–37.6; O2SAT 92–100; BMI 14.6
--- NOTE | 2021-02-10 03:46 | EKG12_ITS ---
Test Reason : DYSRHYTHMIA Blood Pressure : / mmHG Vent. Rate : 072 BPM Atrial Rate : 072 BPM P-R Int : 126 ms QRS Dur : 076 ms QT Int : 424 ms P-R-T Axes : 038 076 059 degrees QTc Int : 464 ms Normal sinus rhythm with sinus arrhythmia Normal ECG Confirmed by HANY CHANDLER, STACY ([id number]), loan expeditor LOBO MONTELONGO ([id number]) on 02/11/2021 10:10:38 AM Referred By: BOB Confirmed By:STACY LEACH MD
[2021-02-10] MEDS: 0.9% Normal Saline 1,000 ML 125 ML IV ×2 (05:26→19:29)
[2021-02-10] MEDS: Morphine 2 MG/ML Syringe IV ×4 (08:40→23:35)
[2021-02-10] MEDS: Bupiv/Epi 0.25% 30 ML Vial (11:45)
--- NOTE | 2021-02-10 12:00 | HERN_PTH ---
PATIENT: EDITH BAXTER LOC: MS3 U#:[id number] AGE/SX: 30/ ROOM: MS316 RE02/09/[address]: Dr. Eder Sandhu MD : 1990 BED: 1 DIS: 02/11/2021 SPEC #: [id number] RECD: 02/11/21 07:46 STATUS: BAILEY CARCAMO #: [id number] SOLEDAD: 02/10/21 12:[address]: Eder Sandhu DEPT: SURGICAL PATHOLOGY RECD BY: Sharita Singh ENTERED: 02/11/21 09:05 SP TYPE: Hernia OTHR DR: Dr. Dakota Sanchez, DO Tissues: HERNIA Procedures: Surgery Specimen Level IV HEADER OPERATION: Open and laparoscopic ventral hernia repair with mesh PRE-OP DIAGNOSIS: Ventral hernia TISSUE SUBMITTED: Hernia sac MICROSCOPIC DIAGNOSIS Hernia sac: Pieces of fibroadipose and fibroconnective tissue consistent with hernia sac with chronic inflammation, focal foreign body giant cell reaction and granulation and tissue reaction. MIN:kristyn 02/14/2021 MICROSCOPIC DESCRIPTION Slides are reviewed. GROSS DESCRIPTION Received in fixative is one container labeled with the patient's name and designated hernia sac. The specimen consists of two pieces of adipose tissue measuring in aggregate 7 x 5 x 3 cm. Sections do not reveal any mass lesion. Hospitality Team Member sections are submitted in one cassette. / MIN:kristyn 02/11/21 TC:5 CPT: 34885
[2021-02-10] MEDS: Lactated Ringers 1,000 ML 100 ML IV ×2 (12:15→13:47)
--- NOTE | 2021-02-10 13:18 | PCM.OPRPT ---
Problems Associated Problem List Diagnoses (1) Ventral hernia: Report of Operation Date of Procedure: 02/10/21 Pre-Operative Diagnosis: Ventral hernia Post-Operative Diagnosis: Hernia and umbilical hernia Surgery/Procedure Performed:: Hybrid open and laparoscopic ventral hernia repair with mesh and umbilical hernia repair with mesh Specimen's removed: Hernia Description of Procedure: Patient was brought back to the operating room and general anesthesia was induced. The abdomen was prepped and draped in usual sterile fashion. A midline incision was made superior to the umbilicus and deepened to the hernia sac. The hernia sac was opened and the contents were reduced. The hernia sac was excised using electrocautery. Using interrupted 0 PDS sutures the fascia was reapproximated. The middle 2 sutures were not tied immediately and a port was placed through the fascia. The abdomen was then insufflated to 15 mmHg. A camera placed in the abdomen and under direct visualization two left lateral 5 mm ports were placed. Next the camera was moved to the side port and the abdomen was inspected. The patient had an umbilical hernia. A small incision was made inferior to the umbilicus and using a Aubrey Lehman needle and 0 Vicryl suture the inferior small defect was reapproximated. Next a large ventral light ST circular mesh was placed through the 12 mm port and the balloon was insufflated. The pressure was dropped to a millimeters. The remaining suture on the anterior fascia was tied. Secure strap tacks were used to tack the mesh to the anterior abdominal wall in 4 quadrants. The balloon was then removed through one of the 5 mm ports and was inspected and was completely intact. Next using the secure strap tacker the mesh was tacked to the anterior abdominal wall circumferentially in 2 rows. This covered both defects. Next the abdomen was allowed to desufflate from air and the incisions were injected with local anesthetic and closed with 4-0 Monocryl suture and Steri-Strips and bandages. Patient was awoken and taken to PACU in stable condition tolerated the procedure well. Grafts/Implants Used: Round ventralight ST mesh Admit VTE Documentation VTE Mechan Device Prophylaxis: SCD's
[2021-02-10] MEDS: 0.9% Saline Lock 10 ML Syringe IV ×3 (15:39→23:35)
[2021-02-10] MEDS: Ondansetron 4 MG/2 ML Vial IV (15:39)
[2021-02-11] MEDS: 0.9% Normal Saline 1,000 ML 125 ML IV (03:31)
[2021-02-11 03:32] VITALS: BP 105/61; PULSE 81; RESP 18; TEMP 37.2; O2SAT 95
[2021-02-11] MEDS: Morphine 2 MG/ML Syringe IV (03:48)
[2021-02-11] MEDS: 0.9% Saline Lock 10 ML Syringe IV (03:48)
--- NOTE | 2021-02-11 08:16 | PN.SURG_ITS ---
Subjective Subjective: Patient is improved she is still having abdominal pain but it is improving. No nausea vomiting on clears. Objective Data Objective Data Vital Signs: Vital Signs Temp Pulse Resp BP Pulse Ox 98.9 F 81 18 105/61 95 02/11/21 03:32 02/11/21 03:32 02/11/21 03:32 02/11/21 03:32 02/11/21 03:32 Oxygen Delivery Method Room Air Weight: 82 lb 7.246 oz Body Mass Index (BMI) 14.6 Intake & Output: Intake and Output for Last 24 Hours 02/09/21 02/10/21 02/11/21 23:59 23:59 23:59 Intake Total 200 / 200 4095 / 4095 1600 / 1600 Output Total 500 / 500 800 / 800 Balance 200 / 200 3595 / 3595 800 / 800 Lab / Micro Data Result Diagrams: 02/09/21 18:10 02/09/21 18:10 Micro: Microbiology 02/09/21 21:35 Mucosa - Nasopharyngeal SARS-CoV-2 Antigen (Rapid) - Final Physical Exam Narrative Abdomen is soft and nondistended. Incision clean dry and intact Assessment & Plan Assessment/Plan (1) Ventral hernia: Status: Resolved Code(s): K43.9 - Ventral hernia without obstruction or gangrene Qualifiers: Obstruction and gangrene presence: without obstruction or gangrene Qualified Code(s): K43.9 - Ventral hernia without obstruction or gangrene Plan: Patient is doing well after ventral hernia repair with mesh. I will discharge patient later today when she is tolerating a diet and her pain is well controlled on oral meds. Eder Sandhu MD Pager: [facility] [address] [place] [address], [address] [place] [address] Office:
--- NOTE | 2021-02-11 08:17 | DS.PCM_ITS ---
Providers Date of Admission: 02/09/21 Primary Care Physician: Dr. Dakota Sanchez DO Reason For Visit: VENTRAL HERNIA Diagnosis Discharge Diagnosis (1) Ventral hernia: Status: Resolved Code(s): K43.9 - Ventral hernia without obstruction or gangrene Qualifiers: Obstruction and gangrene presence: without obstruction or gangrene Qualified Code(s): K43.9 - Ventral hernia without obstruction or gangrene Medications at Discharge Home Medications ibuprofen 400 mg PO DAILY PRN PRN 02/09/21 acetaminophen [Tylenol] 650 mg PO Q4H PRN PRN #0 tab 02/11/21 oxycodone 5 - 10 mg PO Q4H PRN PRN 5 Days #40 tab 02/11/21 Hospital Course Operations - (Ventral hernia repair with mesh) Summary of Care Provided Hospital Course: The patient was admitted to the emergency room and had a CT scan which showed incarcerated ventral hernia containing fat. The hernia was able to be reduced and the patient was admitted for pain control. The following day the patient was taken for a laparoscopic/open ventral hernia repair with mesh. Patient tolerated the procedure was taken to the floor postoperatively. The following morning she was started on a diet and discharged home later that day. ABG / Lab / Microbiology Data Result Diagrams: 02/09/21 18:10 02/09/21 18:10 Microbiology: Microbiology 02/09/21 21:35 Mucosa - Nasopharyngeal SARS-CoV-2 Antigen (Rapid) - Final Radiography Diagnostic Testing: Clinical Impression(s) from Imaging Studies Abdomen/Pelvis CT 02/09/21 17:58 IMPRESSION: 1. Large periumbilical hernia. There is mild stranding. Mild incarceration cannot be completely ruled out. 2. Otherwise normal CT of the abdomen and pelvis. Electronically Signed: Atilio Valdez DO at 19:12 EDT Tel [phone], Service support , D/C Instructions Discharge Diet: Light diet - advance as tolerated Discharge Activity: May Not Drive (for 2-3 days or while taking narcotic pain me ds.) and May Shower (with the bandage in place 1-2 days after surgery.) Lifting Restricted to (Lbs): 20 (20 lbs for 4-6 weeks) Additional Activity Instructions: Climbing stairs is fine, walking is encouraged. Sitting in bed may be uncomfortable. Sitting up using your lateral muscles (sitting up sideways) is usually more comfortable. Do not drive, work heavy equipment of sign legal documents for 24 hours. Pain medications may cause nausea, you should typically eat light foods as you take your pain medications. Pain medications may also cause constipation. If you have difficulty with this, discuss with your doctor. Call your doctor if your incision/area has: Continuous Slow Oozing, Sudden Increased Bleeding, Increased Pain/ Swelling, Increased Redness, Foul Smelling Discharge and Swelling at the incision site Call your doctor if you observe: Fever of 101 or Higher Suture Line Care: Avoid Pulling/Pushing and Avoid Pinching/Bending Cleanse incision/area with: Soap & Water Additional Dressing/Incision Instructions: Remove clear bandages in 2 days. Leave Steri-Strips for 7 to 10 days and then removed. Please Follow Up With: Eder Sandhu MD When: Please call to schedule 2 week follow up appointment. [phone] Meaningful Use Info Meaningful Use Diagnoses (Choose all that apply): None applicable Discharge Plan Admission Admit Date/Time: 02/09/21 20:58 Attending Provider: Eder Sandhu Primary Care Provider: Dakota Sanchez Discharge Orders/Prescriptions Prescriptions: New acetaminophen [Tylenol] 325 mg Tablet 650 mg PO Q4H PRN PRN (Reason: Pain 1-10/Fever) Qty: 0 RF: 0 oxycodone 5 mg Tablet 5 - 10 mg PO Q4H PRN PRN (Reason: Pain Score 4-10) 5 Days Qty: 40 RF: 0 Continued ibuprofen 200 mg Tablet 400 mg PO DAILY PRN PRN (Reason: Headache) RF: 0 Referrals: Dakota Sanchez DO [Primary Care Provider] - Disposition Patient Disposition: Home, self care
[2021-02-11 08:46] VITALS: BP 109/65; PULSE 93; RESP 16; TEMP 36.8; O2SAT 100
[2021-02-11] MEDS: oxyCODONE 5 MG Tablet PO (09:08)
== END 2021-02-11 13:40 | disposition home or self-care (01) ==
LOC: ED 20:17 → MS3 21:58
PROVIDERS: Admitting Provider Surgery; Emergency Provider Emergency Medicine; PCP Student in an Organized Health Care Education/Training Program; Visit Provider Surgery
PROC: 0WQF4ZZ Repair Abdominal Wall, Percutaneous Endoscopic Approach (ICD-10-PCS; CPT 49560; principal; 2021-02-10 11:40)
DX: K43.9 Ventral hernia without obstruction or gangrene (principal); K42.0 Umbilical hernia with obstruction, without gangrene
CPT/HCPCS: 00752; 49560; 49568; 49585; 74177; 80048; 80076; 81001; 81025; 83690; 85025; 87426; 88302; 88305; 93005; 96361; 96374; 96375; 96376; 99218; 99284; J7030; J7120; Q9967; A4216; G0378; J2405

== ENCOUNTER 2022-05-01 11:12 | Emergency (ER) | payer MEDICAID, SELFPAY ==
[2022-05-01 11:13] VITALS: BP 122/77; PULSE 95; RESP 16; TEMP 36.5; O2SAT 100; BMI 31.8
--- NOTE | 2022-05-01 11:22 | ED.VIS.CHEST ---
HPI History of Present Illness Chief Complaint: Palpitations Narrative Narrative: This is a 32-year-old female presenting with intermittent episodes of palpitations over the last couple of weeks. She states she does not have any cardiac or pulmonary history. She is a non-smoker. She states that her family does have cardiac disease but did not develop this at a young age. She does not have a cough, fever, chills. She states that when she has the palpitations sometimes she feels a little short of breath. She is not on control, no history of DVT/PE, no recent surgery or immobilization no history of cancer. Patient does relate that she has some anxiety and is unsure if this is a source of her symptoms. Today she developed some chest pain while she was at work which radiated to the back. She did feel very anxious and she left work to come get checked out. Currently she does not have any pain. [facility] Medical History Frequent headaches Pancreatitis Ventral hernia Home Medications NK 05/01/22 [History Last Taken Unknown] Allergy/AdvReac Type Severity Reaction Status Date / Time No Known Allergies Allergy Verified 05/01/22 11:13 Family History Mother No problems noted. Surgical History delivery delivered History of incisional hernia repair Hx of cholecystectomy Hx of ventral hernia repair Social History Smoking Status: Never smoker ROS [facility] ED Constitutional Constitutional ED: Denies chills, fever(s) or sweats Eyes Eyes: Denies blurry vision or change in vision ENT ENT ED: Denies ear pain or sore throat Cardiovascular Cardiovascular: Reports chest pain, palpitations and racing heartbeat Respiratory/Chest Respiratory/Chest: Reports dyspnea; Denies cough or sputum Gastrointestinal Gastrointestinal: Denies abdominal pain, constipation, diarrhea, nausea or vomiting Genitourinary Genitourinary ED: Denies dysuria, hematuria or urinary frequency Musculoskeletal Musculoskeletal: Denies arthralgias, myalgias or neck pain Integumentary Denies abscess, Abrasions or rash Neurologic Neurologic: Denies headache(s), paresthesias or weakness Psychiatric Psychiatric: Denies anxiety, depression, suicidal ideation or suicidal thoughts Endocrine Endocrinology: Denies polydipsia or polyuria EXAM Physical Exam Const Vital Signs: 05/01/22 11:13 05/01/22 11:23 05/01/22 11:38 Temperature 97.7 F L Temperature Source Temporal Pulse Rate 95 Respiratory Rate 16 Respiratory Pattern Normal Blood Pressure 122/77 H Blood Pressure Mean 92 Pulse Ox 100 Oxygen Delivery Method Room Air Room Air 05/01/22 12:21 05/01/22 14:01 05/01/22 14:38 Temperature Temperature Source Pulse Rate 80 85 77 Respiratory Rate 12 15 14 Respiratory Pattern Blood Pressure 102/55 L 100/75 Blood Pressure Mean 70 83 Pulse Ox 98 100 99 Oxygen Delivery Method Room Air Room Air Room Air Positive well nourished General Appearance ED: Negative for pallor HEENT Reports normocephalic, head/scalp atraumatic and moist mucous membranes Eyes PERRL and EOMs intact bilaterally Neck no lymphadenopathy and supple Chest Wall inspection of chest normal and palpation of chest normal Resp normal respiratory effort and clear to auscultation bilaterally Auscultation: Negative for rales, rhonchi or wheezes Cardio regular rate and regular rhythm GI Auscultation: normoactive bowel sounds Palpation: soft Narrative: Deferred Back/Spine no CVA tenderness General Back: Negative for CVA tenderness Cervical Spine: Negative for cervical spine tenderness Extremity normal to inspection General Extremety ED: Yes edema and tenderness General Extremity: edema Neuro oriented x3 and CN's II-XII intact bilaterally Sensorium / Orientation: alert Motor Exam: strength 5/5 throughout Psych mental status grossly normal Attitude: No agitated Skin no rashes or lesions noted and no wounds General Skin Exam: Negative for jaundice or pallor Heart Score History: Slightly/Non-Suspicious ECG: Normal Age: </= 45 years Risk Factors: No Risk Factors Score: 0 MDM MDM MDM Narrative Medical decision making narrative: Patient presenting with intermittent palpitations and chest pain which started today. Currently pain-free. She states does not last very long. She does not have any history of cardiac disease or any risk factors. Patient is PERC negative. EKG on my interpretation shows a normal sinus rhythm with a ventricular rate of 82 bpm without sign of ischemic change or dysrhythmia. High-sensitivity troponin is less than 3 and at 2 hours it is less than 3 again. I do not believe the source of her chest pain is ACS. Did note that she had some PVCs when I went to reevaluate her. I had a long discussion about the symptoms of this. I think she stable for discharge home. She agrees. Impression: 1. Palpitations 2. Chest pain noncardiac 3. PVCs Lab Data Attestation: I reviewed the patient's lab results. Labs: Laboratory Results - last 24 hr 05/01/22 05/01/22 05/01/22 11:30 11:30 13:40 WBC 7.9 RBC 4.50 Hgb 13.0 Hct 38.5 MCV 85.6 MCH 28.9 MCHC 33.8 RDW Std Deviation 42.1 RDW Coeff of Grady 13.5 Plt Count 259 MPV 9.5 Immature Gran % (Auto) 0.500 Neut % (Auto) 68.7 Lymph % (Auto) 22.4 Price % (Auto) 5.7 Eos % (Auto) 2.3 Baso % (Auto) 0.4 Absolute Neuts (auto) 5.4 Absolute Lymphs (auto) 1.76 Nucleated RBC % 0 Sodium 138 Potassium 3.7 Chloride 106 Carbon Dioxide 27.0 Anion Gap 5 BUN 12 Creatinine 0.72 Estim Creat Clear Calc 91.93 Est GFR (MDRD) Af Amer 120 Est GFR (MDRD) Non-Af 99 BUN/Creatinine Ratio 16.7 Glucose 119 H Calcium 8.9 Troponin I High Sens < 3 L < 3 L Radiography Diagnostic Testing: Clinical Impression(s) from Imaging Studies Chest X-Ray 05/01/22 11:41 IMPRESSION: Normal x-ray examination of the chest. Electronically Signed: Obi Lundy MD at 12:00 EDT , Discharge Plan Triage Chief Complaint: Palpitations ED Provider: Amador Lagunas Dx/Rx/DC Orders Instructions: PVCs, ED Palpitations Prescriptions: No Action NK Primary Care Provider: Dakota Sanchez Referrals: Dakota Sanchez, [Primary Care Provider] - Disposition Disposition: Home, Self Care
[2022-05-01 11:38] LABS: Absolute Lymphocyte Count 1.76 X10^3/uL (0.83-4.51); Absolute Neutrophil Count 5.4 X10^3/uL (2.0-7.7); Basophil# 0.03 X10^3/uL; Basophil% 0.4 % (0-1); Eosinophil# 0.18 X10^3/uL; Eosinophils% 2.3 % (0-5); Hematocrit 38.5 % (37-47); Lymphocyte # 1.76 X10^3/ul (0.83-4.51); Lymphocyte % 22.4 % (19-41); Mean Corp Hgb Conc 33.8 g/dL (32-36); Mean Corpuscular Hgb 28.9 pg (27.0-32.0); Mean Corpuscular Volume 85.6 fL (81-99); Mean Platelet Vol. 9.5 fl (6.2-12.0); Monocyte# 0.45 X10^3/uL; Monocyte% 5.7 % (0-10); NRBC Flagged by Analyzer 0 % (0-5); Neutrophil % 68.7 % (47-70); Platelet Count 259 K/mm3 (150-450); RBC Distribution Width CV 13.5 % (11.6-14.6); RBC Distribution Width SD 42.1 fl (35.1-43.9); White Blood Count 7.9 K/mm3 (4.4-11.0)
--- NOTE | 2022-05-01 11:41 | RAD_ITS ---
STUDY: X-RAY CHEST REASON FOR EXAM: Female, 32 years old. Palpitations and chest pain. TECHNIQUE: Single AP portable view of the chest. COMPARISON: None. FINDINGS: EKG electrodes are seen. The lungs are clear and expanded. There is no demonstrated pleural abnormality. Normal size heart. Normal mediastinum and krzysztof. Normal visualized pulmonary arteries. Normal visualized aortic arch and descending thoracic aorta. Normal visualized thoracic spine. Normal visualized ribs, clavicles, and shoulders. There is no demonstrated abnormality of the visualized soft tissue structures of the upper abdomen. RAD/Chest 1 View (Portable) IMPRESSION: Normal x-ray examination of the chest. Electronically Signed: Obi Lundy MD at 12:00 EDT ,
[2022-05-01 12:02] LABS: Anion Gap 5 (5-15); BUN 12 mg/dL (7-18); BUN/Creat Ratio 16.7 RATIO (10-20); Calcium,Total 8.9 mg/dL (8.5-10.1); Chloride 106 mmol/L (98-107); Creatinine, Serum 0.72 mg/dL (0.55-1.02); EST Glomerular Filtration Rate 99 mL/min (>60); Est Glom Filt Rate - Afr Amer 120 mL/min (>60); Estimated Creatinine Clearance 91.93 ml/min; Glucose 119 mg/dL (74-106); Potassium 3.7 mmol/L (3.5-5.1); Sodium Level 138 mmol/L (136-145); Troponin-I HS (w/2H Reflex) < 3 pg/mL (3.0-54.0)
[2022-05-01 12:21] VITALS: PULSE 80; RESP 12; O2SAT 98
[2022-05-01 13:36] LABS: Reflex Troponin-HS? (from REC) Y
[2022-05-01 14:01] VITALS: BP 102/55; PULSE 85; RESP 15; O2SAT 100
[2022-05-01 14:11] LABS: Troponin-I HS < 3 pg/mL (3.0-54.0)
[2022-05-01 14:38] VITALS: BP 100/75; PULSE 77; RESP 14; O2SAT 99
[2022-05-01 15:23] VITALS: BP 112/80; PULSE 79; RESP 16; O2SAT 95
== END 2022-05-01 15:25 | disposition home or self-care (01) ==
PROVIDERS: Emergency Provider Student in an Organized Health Care Education/Training Program; PCP Student in an Organized Health Care Education/Training Program; Visit Provider Student in an Organized Health Care Education/Training Program
DX: I49.3 Ventricular premature depolarization (principal); R07.89 Other chest pain; F41.9 Anxiety disorder, unspecified
CPT/HCPCS: 71045; 80048; 84484; 85025; 93005; 99284; A4216

== ENCOUNTER 2024-02-05 21:45 | Emergency (ER) | payer MEDICAID, SELFPAY ==
[2024-02-05 21:46] VITALS: BP 129/93; PULSE 109; RESP 18; TEMP 36.2; O2SAT 100; BMI 37.2
--- NOTE | 2024-02-05 22:03 | RAD_ITS ---
EXAM: XR CHEST, 2 VIEWS CLINICAL INDICATION: cough, sob TECHNIQUE: Frontal and lateral views of the chest. COMPARISON: 05/01/2022 FINDINGS: LUNGS AND PLEURAL SPACES: No significant abnormality. No consolidation or edema. No pneumothorax. No effusion. HEART: No significant abnormality. Cardiac silhouette not enlarged. MEDIASTINUM: Central airways and mediastinal contour are unremarkable. BONES/JOINTS: No significant abnormality. No acute fracture. SOFT TISSUES: No significant abnormality. RAD/Chest PA and Lateral IMPRESSION: No radiographic evidence of acute cardiopulmonary disease. Electronically Signed: Thomas Manuel DO at 23:35 EDT ,
--- NOTE | 2024-02-05 22:04 | EDS_ITS ---
HPI History of Present Illness Chief Complaint: Shortness of Breath Informant: patient Onset/Context/Timing Onset: Yesterday Context: gradual Quality: Positive for Wheezing Current Severity: Mild Maximum Severity: Moderate Worsened by: Exertion and Coughing Relieved by: Albuterol (partially when using neb machine at home but less w/ MDI) Associated Symptoms cough Chest Pain: Positive for None Narrative Narrative: 33-year-old female has had a cough along with increase in her asthma symptoms for the last day or 2. She is concerned because the multiple times she has used her MDI and nebulizer machine, she has not gotten a lot of relief although she admits that has helped some. She states this feels like her asthma she thinks. No known sick contacts. No travel out of the area or recent surgery/immobilization/hospitalization. No history of DVT or PE. No chest discomfort. No syncope or presyncope. No fevers or chills. No headache or myalgias but she has felt tired lately and had a dry mouth today, she is states she has been drinking plenty of water and urinating normally. Also states she has been having tingling in her fingers intermittently for the last month. When it occurs it is both sides simultaneously. Not necessarily associated with her asthma that she knows of. [facility] Medical History (Updated 02/05/24 @ 22:[address] Emiliano Szymanski MD) Anxiety Asthma Frequent headaches Pancreatitis Ventral hernia Home Medications albuterol sulfate 90 mcg/actuation aerosol inhaler 2 puff inhalation Q4H PRN PRN wheezing 02/05/24 [History Last Taken Unknown] budesonide 180 mcg/actuation breath activated powder inhaler (Pulmicort Flexhaler) 2 inh inhalation BID 02/05/24 [History Last Taken Unknown] montelukast 10 mg tablet 10 mg PO QHS 02/05/24 [History Last Taken Unknown] prednisone 20 mg tablet 40 mg (2 x 20 mg) PO DAILY #10 TABLETS 02/05/24 [Rx Last Taken Unknown] Allergy/AdvReac Type Severity Reaction Status Date / Time No Known Allergies Allergy Verified 02/05/24 21:47 Family History Mother No problems noted. Surgical History delivery delivered History of incisional hernia repair Hx of cholecystectomy Hx of ventral hernia repair Social History (Updated 02/05/24 @ 22:10 by Flor Blankenship) household members: family Smoking Status: Never smoker ROS ROS ED Constitutional Constitutional ED: Reports fatigue; Denies body ache(s), chills or fever(s) Eyes Eyes: Denies change in vision or diplopia ENT ENT ED: Reports dry mouth; Denies ear pain, rhinorrhea or sore throat Cardiovascular Cardiovascular: Denies chest pain or palpitations Respiratory/Chest Respiratory/Chest: Reports cough and dyspnea; Denies sputum Gastrointestinal Gastrointestinal: Denies abdominal pain, diarrhea, nausea or vomiting Genitourinary Genitourinary ED: Denies dysuria or hematuria Musculoskeletal Musculoskeletal: Denies back pain or neck pain Integumentary Denies abscess or rash Neurologic Neurologic: Reports paresthesias; Denies headache(s) or weakness Psychiatric Psychiatric: Denies suicidal ideation or suicidal thoughts EXAM Physical Exam Const Vital Signs: 02/05/24 21:46 02/05/24 22:11 02/05/24 22:18 Temperature 97.1 F L Temperature Source Temporal Pulse Rate 109 H 96 Respiratory Rate 18 12 Respiratory Effort Short of Breath Respiratory Pattern Normal Blood Pressure 129/93 H Blood Pressure Mean 105 Pulse Ox 100 Oxygen Delivery Method Room Air Positive well nourished, well developed and obese General Appearance ED: well developed and NAD Nutritional Appearance: obese HEENT Reports moist mucous membranes normocephalic and atraumatic Mouth ED: Yes oral and palatal mucosa normal Mouth: oral and palatal mucosa normal Throat: posterior oropharynx normal Eyes PERRL and EOMs intact bilaterally Neck full ROM, no lymphadenopathy and supple Resp normal respiratory effort Effort and Inspection: able to speak in complete sentences Auscultation: wheezes expiratory wheezes (end-exp; symmetric) and throughout Cardio regular rate, regular rhythm and no murmurs GI non-tender and non-distended Auscultation: normoactive bowel sounds Palpation: soft Back/Spine normal to inspection General Back: other FROM Extremity normal to inspection General Extremety ED: Negative for edema, pulses abnormal or tenderness General Extremity: Negative for edema or pulses abnormal Neuro oriented x3, CN's II-XII intact bilaterally and no sensory deficits noted Sensorium / Orientation: awake and alert Motor Exam: strength 5/5 throughout Skin no rashes or lesions noted and no wounds MDM MDM MDM Narrative Medical decision making narrative: Seasonal allergies are in the differential given the time of year she presents but she does not have a history of this, and viral URI also on the differential as etiology for asthma as it is pneumonia which is less likely based on my exam and her pulse oximetry of 100% on room air. I did do a 2 view chest x-ray, it is negative for pneumonia/pneumothorax on my interpretation. In the meantime she was given a duo nebulizer treatment and prednisone. This did help some. I think giving her a burst of prednisone be reasonable and treat her as an outpatient. We did do a COVID/RSV/influenza swab, and it is negative. Radiography Diagnostic Testing: Clinical Impression(s) from Imaging Studies Chest X-Ray 02/05/24 22:03 IMPRESSION: No radiographic evidence of acute cardiopulmonary disease. Electronically Signed: Thomas Manuel DO at 23:35 EDT , Discharge Plan Triage Chief Complaint: Shortness of Breath ED Provider: Emiliano Szymanski Dx/Rx/DC Orders Clinical Impression: Viral URI with cough, Acute asthma exacerbation Instructions: Asthma Action Plan Prescriptions: New prednisone 20 mg tablet 40 mg PO DAILY Qty: 10 0RF No Action albuterol sulfate 90 mcg/actuation HFA aerosol inhaler 2 puff inhalation Q4H PRN PRN (Reason: wheezing) Pulmicort Flexhaler 180 mcg/actuation aerosol powdr breath activated 2 inh inhalation BID montelukast 10 mg tablet 10 mg PO QHS Primary Care Provider: Dakota Sanchez Referrals: Dakota Sanchez DO [Primary Care Provider] - 1 Week if not improving (Or may return to the ER at any time if you are feeling much worse or having trouble breathing despite your home treatments) Disposition Disposition: Home, Self Care
[2024-02-05] MEDS: predniSONE 20 MG Tablet 40 MG PO (22:11)
[2024-02-05 22:18] VITALS: PULSE 96; RESP 12
[2024-02-05] MEDS: Ipratropium/Albuterol Sulfate 3 ML AMPUL.NEB INHALATION (22:18)
[2024-02-05 23:47] VITALS: BP 125/74; PULSE 91; RESP 14; TEMP 36.2; O2SAT 99
== END 2024-02-05 23:48 | disposition home or self-care (01) ==
PROVIDERS: Emergency Provider Emergency Medicine; PCP Student in an Organized Health Care Education/Training Program; Visit Provider Emergency Medicine
DX: J06.9 Acute upper respiratory infection, unspecified (principal); J45.901 Unspecified asthma with (acute) exacerbation; Z11.52 Encounter for screening for COVID-19
CPT/HCPCS: 71046; 87631; 94640; 99282

== ENCOUNTER 2024-02-22 21:33 | Emergency (ER) | payer MEDICAID, SELFPAY ==
[2024-02-22 21:34] VITALS: BP 154/140; PULSE 222; RESP 18; TEMP 36.2; O2SAT 100; BMI 41.5
[2024-02-22 21:40] VITALS: BP 143/76; PULSE 122; RESP 14; O2SAT 100
[2024-02-22 22:34] VITALS: BP 112/75; PULSE 115; RESP 15; O2SAT 99
[2024-02-22 23:00] VITALS: BP 112/75; PULSE 108; RESP 14; O2SAT 100
[2024-02-22 23:02] LABS: Absolute Lymphocyte Count 3.31 X10^3/uL (0.83-4.51); Absolute Neutrophil Count 9.2 X10^3/uL (2.0-7.7); Basophil# 0.07 X10^3/uL; Basophil% 0.5 % (0-1); Eosinophil# 0.21 X10^3/uL; Eosinophils% 1.5 % (0-5); Hematocrit 43.2 % (37-47); Hemoglobin 13.9 g/dL (12.0-15.0); Lymphocyte # 3.31 X10^3/ul (0.83-4.51); Lymphocyte % 24.4 % (19-41); Mean Corp Hgb Conc 32.2 g/dL (32-36); Mean Corpuscular Hgb 27.4 pg (27.0-32.0); Mean Platelet Vol. 10.4 fl (6.2-12.0); Monocyte# 0.76 X10^3/uL; Monocyte% 5.6 % (0-10); NRBC Flagged by Analyzer 0 % (0-5); Neutrophil # 9.17 X10^3/uL (2.7-7.7); Neutrophil % 67.5 % (47-70); Platelet Count 365 K/mm3 (150-450); RBC Distribution Width SD 43.1 fl (35.1-43.9); Red Blood Count 5.08 M/mm3 (4.2-5.4); White Blood Count 13.6 K/mm3 (4.4-11.0)
--- NOTE | 2024-02-22 23:10 | EX.ED.DYSGE1 ---
HPI History of Present Illness Chief Complaint: Palpitations Detail of Chief Complaint: Palpitations/rapid heart rate with lightheadedness and diaphoresis Informant: patient Onset/Context/Timing Onset: Hours (Approximately 1.5 hours prior to presentation) Context: Sudden Onset Timing: Continuous Quality: Rapid heart rate Location: Chest Current Severity: Severe Maximum Severity: Severe Worsened by: Nothing Relieved by: nothing Associated Symptoms Associated Symptoms: Diaphoresis and lightheadedness Narrative Narrative: Patient is a 34-year-old woman. She does have history of asthma. She did not use her inhaler prior to this episode. She was in the kitchen making dinner. She states her heart began to pound. Then it was very rapid. She became lightheaded and sweaty. She thought she was going to pass out. She states she has had palpitation the past. This is different. She has no history of WPW, PSVT etc. Patient denies fever, chills night sweats. Patient [place] headache, visual, ocular auditory symptoms. Presently patient denies palpitations. Her heart rate decreased from 222 in triage to 122 when she was brought back to her bed. Unfortunately the rhythm was not captured on the monitor. Patient denies nausea, vomit diarrhea. Patient denies weight gain weight loss. Patient denies heat or cold intolerance. Prior similar symptoms: No Recent Illness/Hospitalization: No PFSH PFSH Medical History Anxiety Asthma Frequent headaches Pancreatitis Ventral hernia Home Medications albuterol sulfate 90 mcg/actuation aerosol inhaler 2 puff inhalation Q4H PRN PRN wheezing 02/05/24 [History Last Taken Unknown] budesonide 180 mcg/actuation breath activated powder inhaler (Pulmicort Flexhaler) 2 inh inhalation BID 02/05/24 [History Last Taken Unknown] montelukast 10 mg tablet 10 mg PO QHS 02/05/24 [History Last Taken Unknown] prednisone 20 mg tablet 40 mg (2 x 20 mg) PO DAILY #10 TABLETS 02/05/24 [Rx Last Taken Unknown] metoprolol succinate 25 mg tablet,extended release 24 hr 25 mg PO BID #60 tabs 02/23/24 [Rx Last Taken Unknown] Allergy/AdvReac Type Severity Reaction Status Date / Time No Known Allergies Allergy Verified 02/22/24 21:35 Family History Mother No problems noted. Surgical History delivery delivered History of incisional hernia repair Hx of cholecystectomy Hx of ventral hernia repair Social History household members: family Smoking Status: Never smoker ROS ROS ED Constitutional Constitutional ED: Denies chills, fever(s) or subjective Eyes Eyes: Denies blurry vision, change in vision or diplopia ENT ENT ED: Denies ear pain, rhinorrhea or sore throat Cardiovascular Cardiovascular: Reports palpitations and racing heartbeat; Denies chest pain, orthopnea or paroxysmal nocturnal dyspnea Respiratory/Chest Respiratory/Chest: Reports dyspnea; Denies cough, dyspnea on exertion, orthopnea, paroxysmal nocturnal dyspnea or sputum Gastrointestinal Gastrointestinal: Denies abdominal pain, nausea or vomiting Genitourinary Genitourinary ED: Denies dysuria, hematuria or urinary frequency Musculoskeletal Musculoskeletal: Denies arthralgias, myalgias or neck pain Integumentary Denies rash Neurologic Neurologic: Reports headache(s) and weakness; Denies paresthesias Psychiatric Psychiatric: Reports anxiety; Denies depression Endocrine Endocrinology: Denies cold intolerance or heat intolerance Hematologic/Lymphatic Hematologic/Lymphatic: Reports systems reviewed and no addt'l complaints, except as documented Allergic/Immunologic Allergic/Immunologic ED: Denies mouth swelling, tongue swelling or urticaria EXAM Physical Exam Const Vital Signs: 02/22/24 21:34 02/22/24 21:38 02/22/24 21:40 Temperature 97.2 F L Temperature Source Temporal Pulse Rate 222 H 122 H Respiratory Rate 18 14 Respiratory Effort Short of Breath Blood Pressure 154/140 H 143/76 H Blood Pressure Mean 144 98 Pulse Ox 100 100 Oxygen Delivery Method Room Air Room Air 02/22/24 22:34 02/22/24 23:00 02/23/24 00:00 Temperature Temperature Source Pulse Rate 115 H 108 H 101 H Respiratory Rate 15 14 15 Respiratory Effort Blood Pressure 112/75 112/75 115/73 Blood Pressure Mean 87 87 87 Pulse Ox 99 100 97 Oxygen Delivery Method Room Air Room Air Room Air Positive well nourished and well developed Constitutional Narrative: Patient appears anxious. She states her Hout does not seem to be going as fast. General Appearance ED: well developed; Negative for cyanotic, diaphoretic or pallor HEENT Reports moist mucous membranes HEENT Narrative: Head is atraumatic, cephalic. Ears normal. Nares patent. Posterior pharynx is normal. Uvula is midline. No deviation of protrusion. Eyes PERRL and EOMs intact bilaterally General Eye ED: Negative for pale conjunctiva or scleral icterus Neck no lymphadenopathy, supple and no JVD Neck Narrative: There is no thyromegaly. Trachea is midline. Chest Wall inspection of chest normal and palpation of chest normal Resp normal respiratory effort and clear to auscultation bilaterally Cardio regular rhythm, S1 normal heart sound, S2 normal heart sound and no murmurs Rate: tachycardic GI normal to inspection, nondistended, normoactive bowel sounds, non-tender, non-distended and no masses; Negative for hepatosplenomegaly Extremity normal to inspection General Extremety ED: Negative for edema General Extremity: Negative for edema Neuro oriented x3, CN's II-XII intact bilaterally and no sensory deficits noted Sensorium / Orientation: alert Motor Exam: strength 5/5 throughout Psych Mood & Affect: anxious Skin no rashes or lesions noted, no wounds and skin turgor normal General Skin Exam: elasticity normal; Negative for jaundice or pallor MDM MDM MDM Narrative Medical decision making narrative: Monitor reveals a narrow complex sinus tachycardia 1 20-1 30. Patient is no longer diaphoretic. She is slightly anxious. Will obtain electrolyte panel to assess potassium specifically. TSH to rule out thyroid disease. EKG to determine if there is evidence of delta wave that would suggest WPW or shortening of her GA interval etc. Lab Data Attestation: I reviewed the patient's lab results. Lab results narrative: White count is elevated at 13.6 with normal differential. H&H is normal with normal indices. Labs: Laboratory Results - last 24 hr 02/22/24 21:45 WBC 13.6 H RBC 5.08 Hgb 13.9 Hct 43.2 MCV 85.0 MCH 27.4 MCHC 32.2 RDW Std Deviation 43.1 RDW Coeff of Grady 14.0 Plt Count 365 MPV 10.4 Immature Gran % (Auto) 0.500 Neut % (Auto) 67.5 Lymph % (Auto) 24.4 [place] % (Auto) 5.6 Eos % (Auto) 1.5 Baso % (Auto) 0.5 Absolute Neuts (auto) 9.2 H Absolute Lymphs (auto) 3.31 Nucleated RBC % 0 Sodium 138 Potassium 3.1 L Chloride 107 Carbon Dioxide 25.0 Anion Gap 6 BUN 12 Creatinine 0.80 Estim Creat Clear Calc 114.66 Est GFR (MDRD) Af Amer 105 Est GFR (MDRD) Non-Af 86 BUN/Creatinine Ratio 14.9 Glucose 93 Calcium 9.5 TSH 1.27 Treatment and Re-Evaluation :: Patient was reassessed at 0010. Heart rate is 100. She states she feels better. She was informed of results. She was discharged on a prescription for metoprolol. 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 Guido. Discharge Plan Triage Chief Complaint: Palpitations ED Provider: Lázaro Whiting Dx/Rx/DC Orders Clinical Impression: History of asthma, Narrow complex tachycardia Prescriptions: New metoprolol succinate 25 mg tablet extended release 24 hr 25 mg PO BID Qty: 60 0RF No Action albuterol sulfate 90 mcg/actuation HFA aerosol inhaler 2 puff inhalation Q4H PRN PRN (Reason: wheezing) Pulmicort Flexhaler 180 mcg/actuation aerosol powdr breath activated 2 inh inhalation BID montelukast 10 mg tablet 10 mg PO QHS prednisone 20 mg tablet 40 mg PO DAILY Qty: 10 0RF Primary Care Provider: Dakota Sanchez Referrals: Tatyana Guido MD [Med Staff - Active Staff] - 1 Week Dakota Sanchez DO [Primary Care Provider] - Disposition Disposition: Home, Self Care
[2024-02-22 23:25] LABS: Anion Gap 6 (5-15); BUN 12 mg/dL (7-18); BUN/Creat Ratio 14.9 RATIO (10-20); Calcium,Total 9.5 mg/dL (8.5-10.1); Chloride 107 mmol/L (98-107); EST Glomerular Filtration Rate 86 mL/min (>60); Est Glom Filt Rate - Afr Amer 105 mL/min (>60); Estimated Creatinine Clearance 114.66 ml/min; Glucose 93 mg/dL (74-106); Potassium 3.1 mmol/L (3.5-5.1); Sodium Level 138 mmol/L (136-145); Thyroid Stim Hormone (TSH) 1.27 uIU/mL (0.358-3.74)
[2024-02-23] VITALS: BP 115/73; PULSE 101; RESP 15; O2SAT 97
[2024-02-23 00:32] VITALS: BP 115/69; PULSE 97; RESP 16; TEMP 36.6; O2SAT 100
== END 2024-02-23 00:40 | disposition home or self-care (01) ==
PROVIDERS: Emergency Provider Emergency Medicine; PCP Student in an Organized Health Care Education/Training Program; Visit Provider Emergency Medicine
DX: R00.0 Tachycardia, unspecified (principal); R42 Dizziness and giddiness; J45.909 Unspecified asthma, uncomplicated
CPT/HCPCS: 80048; 84443; 85025; 93005; 99284; A4216

== ENCOUNTER → 2024-02-29 | Outpatient (CLI) | payer MEDICAID, SELFPAY ==
[2024-02-29 11:44] LABS: Anion Gap 4 (5-15); BUN 13 mg/dL (7-18); BUN/Creat Ratio 15.9 RATIO (10-20); Calcium,Total 9.1 mg/dL (8.5-10.1); Chloride 106 mmol/L (98-107); Creatinine, Serum 0.82 mg/dL (0.55-1.02); EST Glomerular Filtration Rate 85 mL/min (>60); Est Glom Filt Rate - Afr Amer 102 mL/min (>60); Glucose 89 mg/dL (74-106); Magnesium 2.3 mg/dL (1.6-2.6); Sodium Level 135 mmol/L (136-145)
== END | disposition home or self-care (01) ==
LOC: LAB 10:22
PROVIDERS: PCP Student in an Organized Health Care Education/Training Program; Referring Provider Physician Assistant Medical; Visit Provider Physician Assistant Medical
DX: I47.19 Other supraventricular tachycardia (principal); R00.2 Palpitations
CPT/HCPCS: 36415; 80048; 83735

== ENCOUNTER 2024-05-30 13:33 | Emergency (ER) | payer MEDICAID, SELFPAY ==
[2024-05-30 13:35] VITALS: BP 133/54; PULSE 80; RESP 18; TEMP 35.9; O2SAT 100; BMI 41.9
[2024-05-30 14:29] VITALS: O2SAT 98
--- NOTE | 2024-05-30 15:07 | EDS_ITS ---
HPI History of Present Illness Chief Complaint: Numb/Ting PFSH PFSH Medical History Asthma Ventral hernia Pancreatitis Anxiety Frequent headaches Home Medications ?Medication ?Instructions ?Recorded ?Last Taken ?Type albuterol sulfate 90 mcg/actuation 2 puff inhalation Q4H PRN PRN 02/05/24 Unknown History aerosol inhaler wheezing budesonide 180 mcg/actuation 2 inh inhalation BID 02/05/24 Unknown History breath activated powder inhaler (Pulmicort Flexhaler) montelukast 10 mg tablet 10 mg PO QHS 02/05/24 Unknown History metoprolol succinate 25 mg 25 mg PO QDAY #30 tabs 02/29/24 Unknown Rx tablet,extended release 24 hr Allergy/AdvReac Type Severity Reaction Status Date / Time No Known Allergies Allergy Verified 05/30/24 13:35 Family History Mother No problems noted. Grandmother Atrial fibrillation Pacemaker Surgical History History of incisional hernia repair Hx of ventral hernia repair Hx of cholecystectomy delivery delivered Social History household members: family Smoking Status: Never smoker alcohol intake: never substance use type: does not use caffeine: Yes Type: coffee Number of servings: 1 EXAM Physical Exam Const Vital Signs: 05/30/24 13:35 05/30/24 14:29 05/30/24 15:43 Temperature 96.7 F L Temperature Source Temporal Pulse Rate 80 80 Respiratory Rate 18 16 Respiratory Effort Normal Non-Labored Respiratory Depth Normal Respiratory Pattern Normal Normal Blood Pressure 133/54 H Blood Pressure Mean 80 Pulse Ox 100 Oxygen Delivery Method Room Air Room Air 05/30/24 15:44 Temperature Temperature Source Pulse Rate 77 Respiratory Rate 15 Respiratory Effort Respiratory Depth Respiratory Pattern Blood Pressure 114/70 Blood Pressure Mean 84 Pulse Ox 100 Oxygen Delivery Method Room Air MDM MDM MDM Narrative Medical decision making narrative: HISTORY OF PRESENT ILLNESS: 34-year-old female presents with concern for right-sided upper and lower lip numbness, shortness of breath. States she feels like the left side of her upper lower lips are tingling. Denies loss of sensation. Denies facial asymmetry. Notes her symptoms started when she woke up. Last time she felt normal was 11 PM last night. Denies any head trauma or recent chest pain, cough. She further denies fevers chills. Further denies weakness, loss sensation, incoordination. Denies any urinary complaints. Bleeding diathesis or leg swelling. The patient denies recent surgery in the last 4 weeks or immobilization in the last 3 days, denies previous diagnosis of DVT or PE, hemop tysis, unilateral leg swelling or malignancy with treatment the last 6 months or palliative. No estrogen use noted. REVIEW OF SYSTEMS: Pertinent positives: Numbness, shortness of breath Pertinent negatives: Headache, chest pain, bleeding diathesis PHYSICAL EXAM: Nursing triage notes reviewed, Vital signs reviewed Constitutional: please see mdm HENT: MMM Eyes: Pupils equal round and reactive to light, Extraocular muscles intact Neck: No stridor, no JVD, full neck ROM Lungs: Clear to auscultation, No wheezing or rales. No increased work of breathing, no conversational dyspnea, no accessory muscle use, no nasal flaring. No respiratory distress noted Heart: Regular rate and rhythm, No murmurs, No rubs and No gallops, 2+ distal pulses (radial, femoral, posterior tibial) in all extremities Abdomen: Soft, there is no tenderness, rigidity, rebound or guarding, no obvious peritoneal signs, no palpable pulsatile abdominal masses, no auscultated abdominal bruit : No CVAT Extremities: No edema Neuro: Alert and oriented x3, neuro exam at baseline, cranial nerves II through XII are intact. No pain with extraocular muscle movement. There is negative test of skew. 5 of 5 strength in upper and lower extremities in flexion extension. Intact sensation to light touch in upper and lower extremity dermatomes. No truncal or extremity ataxia. No dysdiadochokinesia. Normal gait. 2+ reflexes in upper and lower extremities. No meningeal signs. Negative Babinski. NIH of 0. Skin: No rash or lesions noted MEDICAL DECISION MAKING: Chief Complaint: Numbness, shortness of breath Imaging reviewed recent anterior of the brain Factors affecting care: Asthma MDM Narrative: Patient was hemodynamically stable, afebrile and nontoxic-appearing. Exam no stigmata of VTE Without focal neurologic deficits. Lungs were clear. I considered the following differential diagnosis: Electrolyte disturbance, CVA, asthma exacerbation, PE, arrhythmia, anemia, electrolyte disturbance, pneumonia, COVID I obtained a broad lab and imaging workup to further elucidate etiology of the patient's complaint. ALL IMAGES (IF OBTAINED) HAVE BEEN PERSONALLY REVIEWED AND INTERPRETED BY MYSELF. CT scan of brain was negative for acute intracranial normality High-sensitivity troponin is negative, no evidence of myocardial ischemia EKG with normal sinus rhythm, normal axis, normal intervals, no STEMI, no stigmata of ARVD, Brugada syndrome, WW or pericarditis. I have personally reviewed the patient's chest x-ray. Chest x-ray is unremarkable for pulmonary edema, pneumothorax, pneumonia or focal cardiopulmonary abnormality. CBC without leukocytosis, severe anemia, no thrombocytopenia. BMP without evidence of significant electrolyte abnormalities, no anion gap, no acute kidney injury. The synthesis of the patient's history, physical exam, labs images suggest no acute life-limiting etiology. While I considered pulmonary embolism as a factor etiology given the patient's report of shortness of breath patient a low risk Wells score and as such have a low suspicion for PE. I considered ordering a CTA of the chest however thought this was not indicated at this time. I also considered CVA as of central cause of patient's numbness. She described to me her symptoms are more of a tingling which is not a loss of function in addition to that she had a nonfocal neuroexam including intact trigeminal nerve distribution bilaterally. She had NIH of 0. CT scan of the head was negative. There is no evidence of CVA, mass, bleed or other acute intracranial process at this time. The patient and/or family, caregivers express understanding. The patient and/or family, caregivers agrees with the plan. Shared decision making: I will have a discussion with the patient and or visitors regarding risk/benefits of further testing or admission. They will be made aware of of the risk/benefits inherent in this decision they will be given the opportunity to voice understanding. Total critical care time today provided was at least 0 minutes. This excludes separately billable procedures. Critical care time (if documented) is secondary to the patient having high probability of clinically significant/life threatening deterioration in the patient's condition which required my urgent intervention. Impression: 1. Paresthesia 2. Shortness of breath Dispo: Discharge home This note was generated with [employer] dictation software. It may contain incorrect words, spelling, and punctuation that were not noted in review of the chart prior to signing. Lab Data Labs: Laboratory Results - last 24 hr 05/30/24 15:35 WBC 9.9 RBC 4.47 Hgb 12.8 Hct 38.3 MCV 85.7 MCH 28.6 MCHC 33.4 RDW Std Deviation 42.9 RDW Coeff of Grady 13.7 Plt Count 278 MPV 10.0 Immature Gran % (Auto) 0.400 Neut % (Auto) 66.6 Lymph % (Auto) 24.0 Garza % (Auto) 5.7 Eos % (Auto) 2.9 Baso % (Auto) 0.4 Absolute Neuts (auto) 6.6 Absolute Lymphs (auto) 2.38 Nucleated RBC % 0 Sodium 139 Potassium 3.7 Chloride 106 Carbon Dioxide 29.0 Anion Gap 4 L BUN 11 Creatinine 0.81 Estim Creat Clear Calc 113.84 Est GFR (MDRD) Af Amer 103 Est GFR (MDRD) Non-Af 85 BUN/Creatinine Ratio 13.6 Glucose 96 Calcium 8.7 Troponin I High Sens 4 Radiography Diagnostic Testing: Clinical Impression(s) from Imaging Studies Brain CT 05/30/24 15:23 IMPRESSION: Normal unenhanced CT scan of the brain. Electronically Signed: Jose Carvalho MD at 16:27 EDT , Chest X-Ray 05/30/24 15:50 IMPRESSION: Normal x-ray examination of the chest. Electronically Signed: Jose Carvalho MD at 16:25 EDT , Discharge Plan Triage Chief Complaint: Numb/Ting Other Complaint: Shortness of Breath ED Provider: Andrea Toscano Dx/Rx/DC Orders Instructions: ED Dyspnea, ED Paraesthesias Prescriptions: No Action metoprolol succinate 25 mg tablet extended release 24 hr 25 mg PO QDAY Qty: 30 11RF albuterol sulfate 90 mcg/actuation HFA aerosol inhaler 2 puff inhalation Q4H PRN PRN (Reason: wheezing) Pulmicort Flexhaler 180 mcg/actuation aerosol powdr breath activated 2 inh inhalation BID montelukast 10 mg tablet 10 mg PO QHS Primary Care Provider: Dakota Sanchez Referrals: Dakota Sanchez DO [Primary Care Provider] - Activity Restrictions/Additional Instructions: Thank you for trusting us with your care today! Please take Tylenol (2 pills, 650 mg), ibuprofen (2 pills, 400 mg) every 6 hours as needed for pain and fever control. Please return to the emergency department if your symptoms change or worsen. Please follow with your primary care physician for further outpatient evaluation and management. Print Language: Wallisian Disposition Disposition: Home, Self Care
--- NOTE | 2024-05-30 15:23 | EKG12_ITS ---
Test Reason : NEURO Blood Pressure : / mmHG Vent. Rate : 076 BPM Atrial Rate : 076 BPM P-R Int : 124 ms QRS Dur : 078 ms QT Int : 388 ms P-R-T Axes : 039 063 044 degrees QTc Int : 436 ms Normal sinus rhythm with sinus arrhythmia Normal ECG Confirmed by Paul Sneed ([id number]), technical writer and editor NAA JESUS ([id number]) on 06/02/2024 9:42:47 AM Referred By: Confirmed By:Paul Sneed
--- NOTE | 2024-05-30 15:23 | CT_ITS ---
STUDY: CT BRAIN WITHOUT CONTRAST REASON FOR EXAM: Female, 34 years old. numbness RADIATION DOSAGE (If Supplied By Facility): CTDIvol = ( 44.99 ) mGy, DLP = ( 779.24 ) mGycm TECHNIQUE: Transaxial CT imaging of the brain was performed without administration of intravenous contrast material. Individualized dose optimization techniques were used for this CT. COMPARISON: No relevant priors. FINDINGS: Normal soft tissue structures. Normal calvarium. Normal size ventricles and extra-axial spaces for the patient''s age. Normal white matter tracts of the cerebral hemispheres. Normal basal ganglia and thalami. Normal brainstem. Normal cerebellum. There is no intracranial hemorrhage. There are no findings of an acute ischemic infarction. Normal visualized paranasal sinuses. CT/Brain/Head without Contrast IMPRESSION: Normal unenhanced CT scan of the brain. Electronically Signed: Jose Carvalho MD at 16:27 EDT ,
[2024-05-30 15:43] VITALS: PULSE 80; RESP 16
[2024-05-30 15:44] VITALS: BP 114/70; PULSE 77; RESP 15; O2SAT 100
--- NOTE | 2024-05-30 15:50 | RAD_ITS ---
STUDY: X-RAY CHEST REASON FOR EXAM: Female, 34 years old. Shortness of breath TECHNIQUE: Single AP portable view of the chest. COMPARISON: 02/05/2024. FINDINGS: The lungs are clear and expanded. There is no demonstrated pleural abnormality. Normal size heart. Normal mediastinum and krzysztof. Normal visualized pulmonary arteries. Normal visualized aortic arch and descending thoracic aorta. Normal visualized thoracic spine. Normal visualized ribs, clavicles, and shoulders. There is no demonstrated abnormality of the visualized soft tissue structures of the upper abdomen. RAD/Chest 1 View (Portable) IMPRESSION: Normal x-ray examination of the chest. Electronically Signed: Jose Carvalho MD at 16:25 EDT ,
[2024-05-30 15:53] LABS: Absolute Lymphocyte Count 2.38 X10^3/uL (0.83-4.51); Absolute Neutrophil Count 6.6 X10^3/uL (2.0-7.7); Basophil# 0.04 X10^3/uL; Basophil% 0.4 % (0-1); Eosinophil# 0.29 X10^3/uL; Eosinophils% 2.9 % (0-5); Hematocrit 38.3 % (37-47); Hemoglobin 12.8 g/dL (12.0-15.0); Lymphocyte # 2.38 X10^3/ul (0.83-4.51); Mean Corp Hgb Conc 33.4 g/dL (32-36); Mean Corpuscular Hgb 28.6 pg (27.0-32.0); Mean Corpuscular Volume 85.7 fL (81-99); Monocyte# 0.56 X10^3/uL; Monocyte% 5.7 % (0-10); NRBC Flagged by Analyzer 0 % (0-5); Neutrophil % 66.6 % (47-70); Platelet Count 278 K/mm3 (150-450); RBC Distribution Width CV 13.7 % (11.6-14.6); RBC Distribution Width SD 42.9 fl (35.1-43.9); Red Blood Count 4.47 M/mm3 (4.2-5.4); White Blood Count 9.9 K/mm3 (4.4-11.0)
[2024-05-30 16:17] LABS: Anion Gap 4 (5-15); BUN 11 mg/dL (7-18); BUN/Creat Ratio 13.6 RATIO (10-20); Calcium,Total 8.7 mg/dL (8.5-10.1); Chloride 106 mmol/L (98-107); Creatinine, Serum 0.81 mg/dL (0.55-1.02); EST Glomerular Filtration Rate 85 mL/min (>60); Est Glom Filt Rate - Afr Amer 103 mL/min (>60); Estimated Creatinine Clearance 113.84 ml/min; Glucose 96 mg/dL (74-106); Potassium 3.7 mmol/L (3.5-5.1); Sodium Level 139 mmol/L (136-145); Troponin-I HS 4 pg/mL (3.0-54.0)
[2024-05-30 17:00] VITALS: BP 108/79; PULSE 78; RESP 15; O2SAT 99
[2024-05-30 17:22] VITALS: BP 104/59; PULSE 84; RESP 16; TEMP 36.6; O2SAT 99
[2024-05-30 17:29] LABS: Internal QC Validated? YES +Cl - CLEAR BKGD; Pregnancy, Urine Negative Negative
== END 2024-05-30 17:29 | disposition home or self-care (01) ==
PROVIDERS: Emergency Provider Emergency Medicine; PCP Student in an Organized Health Care Education/Training Program; Visit Provider Emergency Medicine
DX: R20.2 Paresthesia of skin (principal); J45.909 Unspecified asthma, uncomplicated; R06.02 Shortness of breath; Z79.51 Long term (current) use of inhaled steroids; Z90.49 Acquired absence of other specified parts of digestive tract
CPT/HCPCS: 70450; 71045; 80048; 81025; 84484; 85025; 93005; 94640; 99285

== ENCOUNTER 2024-08-12 21:51 | Emergency (ER) | payer MEDICAID, SELFPAY ==
[2024-08-12 21:52] VITALS: BP 139/76; PULSE 128; RESP 18; TEMP 36.6; O2SAT 99; BMI 41.4
--- NOTE | 2024-08-12 21:54 | EKG12_ITS ---
Test Reason : DYSRHYTHMIA Blood Pressure : */* mmHG Vent. Rate : 114 BPM Atrial Rate : 114 BPM P-R Int : 132 ms QRS Dur : 78 ms QT Int : 328 ms P-R-T Axes : 48 53 25 degrees QTcB Int : 452 ms Sinus tachycardia Otherwise normal ECG When compared with ECG of 30-May-2024 15:47, Vent. rate has increased by 38 bpm Confirmed by FIDELINA ODONNELL MD ([id number]), editor city N[facility] JESUS ([id number]) on 08/15/2024 11:13:03 AM Referred By: Confirmed By: FIDELINA ODONNELL MD
--- NOTE | 2024-08-12 22:25 | RAD_ITS ---
INDICATION: chest pain EXAMINATION/TECHNIQUE: X-RAY - XR Chest 1 View COMPARISON: May 30, 2024 FINDINGS: LINES/DEVICES: None. LUNGS: No consolidation, edema or effusion. No pneumothorax. MEDIASTINUM AND CARDIOVASCULAR STRUCTURES: Cardiac silhouette not enlarged. Central airways and mediastinal contour are unremarkable. BONES AND SOFT TISSUES: Unremarkable. RAD/Chest 1 View (Portable) IMPRESSION: No radiographic evidence of acute cardiopulmonary disease. Electronically Signed: Timothy Solis DO at 23:55 EDT ,
[2024-08-12 22:45] LABS: Absolute Lymphocyte Count 2.55 X10^3/uL (0.83-4.51); Absolute Neutrophil Count 7.6 X10^3/uL (2.0-7.7); Basophil# 0.05 X10^3/uL; Basophil% 0.5 % (0-1); Eosinophil# 0.23 X10^3/uL; Eosinophils% 2.1 % (0-5); Hematocrit 39.4 % (37-47); Lymphocyte # 2.55 X10^3/ul (0.83-4.51); Lymphocyte % 23.1 % (19-41); Mean Corpuscular Hgb 28.1 pg (27.0-32.0); Mean Corpuscular Volume 85.3 fL (81-99); Mean Platelet Vol. 10.2 fl (6.2-12.0); Monocyte# 0.56 X10^3/uL; Monocyte% 5.1 % (0-10); NRBC Flagged by Analyzer 0 % (0-5); Neutrophil # 7.61 X10^3/uL (2.7-7.7); Neutrophil % 68.7 % (47-70); Platelet Count 318 K/mm3 (150-450); RBC Distribution Width CV 13.7 % (11.6-14.6); RBC Distribution Width SD 42.4 fl (35.1-43.9); Red Blood Count 4.62 M/mm3 (4.2-5.4); White Blood Count 11.1 K/mm3 (4.4-11.0)
[2024-08-12 23:05] LABS: Anion Gap 5 (5-15); BUN 14 mg/dL (7-18); BUN/Creat Ratio 18.5 RATIO (10-20); Chloride 107 mmol/L (98-107); Creatinine, Serum 0.76 mg/dL (0.55-1.02); EST Glomerular Filtration Rate 92 mL/min (>60); Est Glom Filt Rate - Afr Amer 112 mL/min (>60); Glucose 99 mg/dL (74-106); Potassium 3.7 mmol/L (3.5-5.1); Sodium Level 138 mmol/L (136-145); Troponin-I HS (w/2H Reflex) 4 pg/mL (3.0-54.0)
--- NOTE | 2024-08-12 23:53 | EX.ED.DYSGE1 ---
HPI History of Present Illness Chief Complaint: Palpitations Informant: patient Narrative Narrative: Patient is a 34-year-old female with history of asthma as well as remote history of SVT. She states that she was following with a outsole flexer and she was taking metoprolol but was not having any breakthrough runs of SVT so the metoprolol was stopped. She states she has been doing well but this evening while just at rest began feel like her heart was racing and her smart watch indicated her heart rate was approximately 230. She states that this rate and sensation reminded her of her previous bouts of SVT and secondary to this she comes to the hospital for evaluation. The patient denies any recent bouts of nausea vomiting or diarrhea or acute blood loss. She states that there is no excessive stimulant use or illicit drug use. PFSH PFSH Medical History Asthma Ventral hernia Pancreatitis Anxiety Frequent headaches Home Medications ?Medication ?Instructions ?Recorded ?Last Taken ?Type albuterol sulfate 90 mcg/actuation 2 puff inhalation Q4H PRN PRN 02/05/24 Unknown History aerosol inhaler wheezing budesonide 180 mcg/actuation 2 inh inhalation BID 02/05/24 Unknown History breath activated powder inhaler (Pulmicort Flexhaler) montelukast 10 mg tablet 10 mg PO QHS 02/05/24 Unknown History Allergy/AdvReac Type Severity Reaction Status Date / Time No Known Allergies Allergy Verified 08/12/24 21:52 Family History Mother No problems noted. Grandmother Atrial fibrillation Pacemaker Surgical History History of incisional hernia repair Hx of ventral hernia repair Hx of cholecystectomy delivery delivered Social History household members: family Smoking Status: Never smoker alcohol intake: never substance use type: does not use caffeine: Yes Type: coffee Number of servings: 1 ROS ROS ED Constitutional Constitutional ED: Denies chills or fever(s) Eyes Eyes: Denies blurry vision or change in vision ENT ENT ED: Denies sore throat Cardiovascular Cardiovascular: Reports palpitations and racing heartbeat; Denies chest pain Respiratory/Chest Respiratory/Chest: Denies cough or dyspnea Gastrointestinal Gastrointestinal: Denies abdominal pain, diarrhea, melena, nausea or vomiting Genitourinary Genitourinary ED: Denies dysuria or hematuria Musculoskeletal Musculoskeletal: Denies myalgias Integumentary Denies rash Neurologic Neurologic: Denies headache(s) Hematologic/Lymphatic Hematologic/Lymphatic: Denies easy bleeding or easy bruising EXAM Physical Exam Const Vital Signs: 08/12/24 21:52 08/12/24 22:42 08/13/24 00:02 Temperature 97.8 F 98.1 F Temperature Source Oral Oral Pulse Rate 128 H 84 Respiratory Rate 18 16 Blood Pressure 139/76 H 110/53 L Blood Pressure Mean 97 72 Pulse Ox 99 98 Oxygen Delivery Method Room Air Room Air Room Air 08/13/24 00:02 Temperature 98.1 F Temperature Source Pulse Rate 84 Respiratory Rate 16 Blood Pressure 110/53 L Blood Pressure Mean 72 Pulse Ox 98 Oxygen Delivery Method Positive well nourished and well developed General Appearance ED: well developed; Negative for pallor HEENT HEENT Narrative: Normocephalic atraumatic Eyes PERRL and EOMs intact bilaterally General Eye ED: Negative for pale conjunctiva or scleral icterus Neck supple Neck Narrative: No nuchal rigidity or meningeal signs Chest Wall palpation of chest normal Resp normal respiratory effort and clear to auscultation bilaterally Cardio regular rhythm Rate: tachycardic and other Other Details: Slightly tachycardic rate with regular rhythm No murmurs rubs or gallop Radial and carotid pulses are equal and symmetric GI normal to inspection, nondistended, normoactive bowel sounds, non-tender, non-distended and no masses Auscultation: normoactive bowel sounds Palpation: soft Extremity normal to inspection Extremity Narrative: No asymmetric edema no pitting edema negative Homans' sign bilaterally Neuro oriented x3, CN's II-XII intact bilaterally and no sensory deficits noted Sensorium / Orientation: alert Motor Exam: strength 5/5 throughout Psych mental status grossly normal Skin no rashes or lesions noted and no wounds General Skin Exam: Negative for jaundice or pallor MDM MDM MDM Narrative Medical decision making narrative: Patient arrived to the ER slightly hypertensive and tachycardic. With the report of a heart rate going up to 230 at home as well as previous history of SVT an EKG was obtained. This showed sinus tachycardia without ischemic changes to suggest acute SC or true cardiac dysrhythmia. There is also concern the patient may be having symptoms secondary to acute blood loss anemia thyroid dysfunction acute kidney injury or electrolyte abnormality. Basic blood work was obtained which revealed no clinically significant findings. The patient was kept on the lunchroom monitor and her heart rate did improved to approximately 95 bpm and remained sinus. Therefore this time with improvement of her heart rate workup revealing no clinically significant findings and the fact that she has not had no true cardiac dysrhythmia I do not feel there is need for further workup. Patient can be discharged home and follow-up with her family doctor and/or outsole flexer to discuss restarting her metoprolol and/or Holter monitor to document a paroxysmal cardiac dysrhythmia History & Record Review Discussion w/independent historian: Patient Lab Data Attestation: I reviewed the patient's lab results. Labs: Laboratory Results - last 24 hr 08/12/24 22:10 WBC 11.1 H RBC 4.62 Hgb 13.0 Hct 39.4 MCV 85.3 MCH 28.1 MCHC 33.0 RDW Std Deviation 42.4 RDW Coeff of Grady 13.7 Plt Count 318 MPV 10.2 Immature Gran % (Auto) 0.500 Neut % (Auto) 68.7 Lymph % (Auto) 23.1 Andrews % (Auto) 5.1 Eos % (Auto) 2.1 Baso % (Auto) 0.5 Absolute Neuts (auto) 7.6 Absolute Lymphs (auto) 2.55 Nucleated RBC % 0 Sodium 138 Potassium 3.7 Chloride 107 Carbon Dioxide 26.0 Anion Gap 5 BUN 14 Creatinine 0.76 Estim Creat Clear Calc 120.50 Est GFR (MDRD) Af Amer 112 Est GFR (MDRD) Non-Af 92 BUN/Creatinine Ratio 18.5 Glucose 99 Calcium 9.0 Magnesium 2.0 Troponin I High Sens 4 TSH 2.230 Radiography Diagnostic Testing: Clinical Impression(s) from Imaging Studies Chest X-Ray 08/12/24 22:25 IMPRESSION: No radiographic evidence of acute cardiopulmonary disease. Electronically Signed: Timothy Solis DO at 23:55 EDT , Chest x-ray as interpreted by the emergency medicine physician reveals no acute infiltrate pneumothorax or pleural effusion Discharge Plan Triage Chief Complaint: Palpitations ED Provider: Moe Mcmanus Dx/Rx/DC Orders Clinical Impression: Palpitations, Sinus tachycardia, Asthma Instructions: Understanding Tachycardia, ED Palpitations Prescriptions: No Action albuterol sulfate 90 mcg/actuation HFA aerosol inhaler 2 puff inhalation Q4H PRN PRN (Reason: wheezing) Pulmicort Flexhaler 180 mcg/actuation aerosol powdr breath activated 2 inh inhalation BID montelukast 10 mg tablet 10 mg PO QHS Primary Care Provider: Dakota Sanchez Referrals: Dakota Sanchez DO [Primary Care Provider] - Activity Restrictions/Additional Instructions: Please follow-up with your family doctor and/or outsole flexer to discuss restarting your metoprolol. Return to the ER should you have any further concerns Print Language: Luxembourger Disposition Disposition: Home, Self Care Discharge Date/Time: 08/13/24 00:04
[2024-08-13 00:02] VITALS: BP 110/53; PULSE 84; RESP 16; TEMP 36.7; O2SAT 98
[2024-08-13 00:42] LABS: Reflex Troponin-HS? (from REC) Y
== END 2024-08-13 00:04 | disposition home or self-care (01) ==
PROVIDERS: Emergency Provider Emergency Medicine; PCP Student in an Organized Health Care Education/Training Program; Visit Provider Emergency Medicine
DX: R00.2 Palpitations (principal); J45.909 Unspecified asthma, uncomplicated; R00.0 Tachycardia, unspecified; R03.0 Elevated blood-pressure reading, without diagnosis of hypertension; Z79.51 Long term (current) use of inhaled steroids
CPT/HCPCS: 71045; 80048; 83735; 84443; 84484; 85025; 93005; 99284; A4216

== ENCOUNTER 2024-10-08 20:22 | Emergency (ER) | payer MEDICAID, SELFPAY ==
[2024-10-08 20:23] VITALS: BP 136/85; PULSE 86; RESP 15; TEMP 36.9; O2SAT 100; BMI 44.2
--- NOTE | 2024-10-08 20:41 | EX.ED.UPPERE ---
HPI History of Present Illness Chief Complaint: Upper Extremity Injury Informant: patient Narrative Narrative: [id number] female presents fall down steps earlier this morning. Primary pain left elbow. Went down 14 step initially down her elbows and she tumbled over. Abrasion to right abdomen and bruising to the hip. She has been using ibuprofen, last dose 1 PM over 6 hours ago. No headaches no neck pain no back or chest pain. No abdominal pain. No nausea vomiting. Does not take any anticoagulation medications. PFSH PFSH Medical History Asthma Ventral hernia Pancreatitis Anxiety Frequent headaches Home Medications ?Medication ?Instructions ?Recorded ?Last Taken ?Type albuterol sulfate 90 mcg/actuation 2 puff inhalation Q4H PRN PRN 02/05/24 Unknown History aerosol inhaler wheezing budesonide 180 mcg/actuation 2 inh inhalation BID 02/05/24 Unknown History breath activated powder inhaler (Pulmicort Flexhaler) montelukast 10 mg tablet 10 mg PO QHS 02/05/24 Unknown History Allergy/AdvReac Type Severity Reaction Status Date / Time No Known Allergies Allergy Verified 10/08/24 20:25 Family History Mother No problems noted. Grandmother Atrial fibrillation Pacemaker Surgical History History of incisional hernia repair Hx of ventral hernia repair Hx of cholecystectomy delivery delivered Social History household members: family Smoking Status: Never smoker alcohol intake: never substance use type: does not use caffeine: Yes Type: coffee Number of servings: 1 ROS ROS ED Constitutional Constitutional ED: Denies chills, fever(s) or sweats ENT ENT ED: Denies sore throat Cardiovascular Cardiovascular: Denies chest pain, leg edema, palpitations or racing heartbeat Respiratory/Chest Respiratory/Chest: Denies cough, dyspnea or dyspnea on exertion Gastrointestinal Gastrointestinal: Denies abdominal pain, diarrhea, nausea or vomiting Genitourinary Genitourinary ED: Denies dysuria, hematuria or urinary frequency Musculoskeletal Musculoskeletal: Reports extremity pain; Denies back pain or neck pain Integumentary Denies rash or wounds Neurologic Neurologic: Denies headache(s), paresthesias or weakness EXAM Physical Exam Const Vital Signs: 10/08/24 20:23 Temperature 98.4 F Temperature Source Temporal Pulse Rate 86 Respiratory Rate 15 Blood Pressure 136/85 H Blood Pressure Mean 102 Pulse Ox 100 Oxygen Delivery Method Room Air Positive well nourished and well developed Constitutional Narrative: GCS 15 General Appearance ED: well developed and NAD HEENT Reports moist mucous membranes normocephalic and atraumatic Eyes General Eye ED: Yes normal appearance of both eyes Neck full ROM Neck Narrative: No midline tenderness or step-offs. Chest Wall inspection of chest normal and palpation of chest normal Chest: Negative for tenderness Resp normal respiratory effort and normal air movement Effort and Inspection: symmetric chest movement; Negative for respiratory distress Cardio regular rate, regular rhythm and no murmurs Peripheral Pulses: pulses 2+ throughout GI normal to inspection, nondistended, normoactive bowel sounds and non-tender Palpation: Negative for guarding or rebound tenderness present Back/Spine Back/Spine Narrative: No midline thoracic or lumbar tenderness. No step-offs. Extremity Extremity Narrative: Negative logroll lower extremities: EXTR Right upper extremity: Full range of motion any tenderness. There is abrasion at the olecranon. Neuro vas intact distally. Left upper extremity: No shoulder tenderness. Pain when she fully extends her elbow mild pain at the radial head there is abrasion at the olecranon, no bleeding noted. Soft compartments. Neuro vas intact distally. General Extremety ED: Negative for edema or tenderness General Extremity: Negative for edema Neuro oriented x3, CN's II-XII intact bilaterally and no sensory deficits noted Sensorium / Orientation: awake and alert Skin no rashes or lesions noted and no wounds MDM MDM MDM Narrative Medical decision making narrative: Interventions / MDM: Differential diagnosis: Fall downstairs, left elbow fracture, elbow contusion Diagnosis considered but do not suspect: N/A My EKG interpretation: N/A Imaging independently reviewed and interpreted by myself: Left elbow 3 views: Joint effusion bony fragment near the radial head possible coronoid process fracture. Also read by radiology. External documents reviewed: N/A Test considered but not ordered:N/A ED course: Patient she is 15 on all steps however no focal deficits no neurologic symptoms. Primary pain left elbow pain with full extension. Three-view x-ray left elbow for further evaluation. 600 mg Motrin ordered. X-ray possible coronoid fracture with joint effusion. She is good range of motion no significant pain. At this time we will place an Dennis wrap and sling for comfort. Will continue Motrin. Outpatient follow-up given orthopedics for evaluation. Re-evaluation: stable Disposition discussed with patient/family/significant other: Patient Case discussed with consulting clinician: N/A This note was generated with [employer] dictation software. It may contain incorrect words, spelling, and punctuation that were not noted in checking the note before signing. Discharge Plan Triage Chief Complaint: Upper Extremity Injury ED Provider: Diomedes Messer Dx/Rx/DC Orders Clinical Impression: Injury of left elbow, Closed fracture of left elbow, Fall Instructions: ED Elbow Fracture Prescriptions: No Action albuterol sulfate 90 mcg/actuation HFA aerosol inhaler 2 puff inhalation Q4H PRN PRN (Reason: wheezing) Pulmicort Flexhaler 180 mcg/actuation aerosol powdr breath activated 2 inh inhalation BID montelukast 10 mg tablet 10 mg PO QHS Primary Care Provider: Dakota Sanchez Referrals: Dakota Sanchez DO [Primary Care Provider] - Marshall Awan MD [Med Staff - Active Staff] - 1 Week Activity Restrictions/Additional Instructions: Left elbow with joint effusion. Questionable fracture coronoid process. Dennis wrap, sling for comfort. Continue Motrin 6 mL every 6 hours. Follow-up with Dr. Awan. Print Language: Spanish Disposition Disposition: Home, Self Care Discharge Date/Time: 10/08/24 22:09
--- NOTE | 2024-10-08 20:44 | RAD_ITS ---
EXAM: XR LEFT ELBOW COMPLETE, 3 OR MORE VIEWS CLINICAL INDICATION: injury pain. TECHNIQUE: Frontal, lateral and oblique views of the left elbow. COMPARISON: No relevant prior studies available. FINDINGS: BONES/JOINTS: There is an elbow joint effusion. There is a 3 mm triangular based bony fragment seen on the lateral view projecting near the radial head, perhaps associated with the coronoid process or simply an intra-articular body. No definite fracture donor site is identified. No destructive or sclerotic lesions. SOFT TISSUES: No significant abnormality. No soft tissue swelling or gas. No radiopaque foreign body. RAD/Elbow min 3 Views IMPRESSION: 1. There is an elbow joint effusion. 2. There is a 3 mm triangular based bony fragment seen on the lateral view projecting near the radial head, perhaps associated with the coronoid process or simply an intra-articular body. No definite fracture donor site is identified. Electronically Signed: Thomas Manuel DO at 21:02 EST ,
[2024-10-08] MEDS: Ibuprofen 600 MG Tablet PO (20:49)
[2024-10-08 22:03] VITALS: BP 136/85; PULSE 86; RESP 15; TEMP 36.9; O2SAT 100
== END 2024-10-08 22:09 | disposition home or self-care (01) ==
PROVIDERS: Emergency Provider Emergency Medicine; PCP Student in an Organized Health Care Education/Training Program; Visit Provider Emergency Medicine
DX: S52.042A Displaced fracture of coronoid process of left ulna, initial encounter for closed fracture (principal); S50.312A Abrasion of left elbow, initial encounter; W10.9XXA Fall (on) (from) unspecified stairs and steps, initial encounter; J45.909 Unspecified asthma, uncomplicated; Z79.51 Long term (current) use of inhaled steroids
CPT/HCPCS: 73080; 99283

== ENCOUNTER 2025-03-18 11:42 | Emergency (ER) | payer MEDICAID, SELFPAY ==
[2025-03-18 11:43] VITALS: BP 126/94; PULSE 124; RESP 16; TEMP 37.1; O2SAT 98; BMI 40.6
--- NOTE | 2025-03-18 11:55 | EKG12_ITS ---
Test Reason : PALPS Blood Pressure : */* mmHG Vent. Rate : 114 BPM Atrial Rate : 114 BPM P-R Int : 96 ms QRS Dur : 70 ms QT Int : 322 ms P-R-T Axes : 28 44 32 degrees QTcB Int : 443 ms Sinus tachycardia with short MT Otherwise normal ECG Confirmed by ROMERO CHANDLER, JENNA ([id number]), film editor supervisor LOBO MONTELONGO ([id number]) on 03/23/2025 6:09:07 AM Referred By: ROZ/BB Confirmed By: JENNA JASSO MD
--- NOTE | 2025-03-18 12:20 | EX.ED.DYSGE1 ---
HPI History of Present Illness Chief Complaint: Palpitations Informant: patient Narrative Narrative: 35-year-old female presents with rapid palpitations that started suddenly while she was sitting at work this morning. She states she felt short of breath, little lightheaded not near syncopal or syncopal. No chest heaviness/discomfort. No recent illness or leg swelling/pain. She states her Apple Watch told her that her heart rate was about 250. States it lasted about 45 minutes total, but abated as she arrived here. This felt similar to prior episodes of SVT. She saw cardiology for it, currently most recently following with [facility] cardiology she cannot remember the name of the physician, but she was on a preventative medication that she cannot recall, and she was taken off of it maybe a year ago. She had a brief episode in September and then this 1 now. Otherwise no problems. At this time her symptoms are resolved. [facility] Medical History Left elbow pain Asthma Ventral hernia Pancreatitis Anxiety Frequent headaches Home Medications ?Medication ?Instructions ?Recorded ?Last Taken ?Type albuterol sulfate 90 mcg/actuation 2 puff inhalation Q4H PRN PRN 02/05/24 Unknown History aerosol inhaler wheezing budesonide 180 mcg/actuation 2 inh inhalation BID 02/05/24 Unknown History breath activated powder inhaler (Pulmicort Flexhaler) montelukast 10 mg tablet 10 mg PO QHS 02/05/24 Unknown History metoprolol succinate 25 mg 25 mg PO DAILY #30 tabs 03/18/25 Unknown Rx tablet,extended release 24 hr Allergy/AdvReac Type Severity Reaction Status Date / Time No Known Allergies Allergy Verified 03/18/25 11:43 Family History Mother No problems noted. Grandmother Atrial fibrillation Pacemaker Surgical History History of incisional hernia repair Hx of ventral hernia repair Hx of cholecystectomy delivery delivered Social History household members: family Smoking Status: Never smoker alcohol intake: never substance use type: does not use caffeine: Yes Type: coffee Number of servings: 1 ROS ROS ED Constitutional Constitutional ED: Denies chills or fever(s) Eyes Eyes: Denies change in vision or diplopia ENT ENT ED: Denies rhinorrhea or sore throat Cardiovascular Cardiovascular: Reports lightheadedness, palpitations and racing heartbeat; Denies chest pain Respiratory/Chest Respiratory/Chest: Reports dyspnea; Denies cough Gastrointestinal Gastrointestinal: Denies abdominal pain, diarrhea, nausea or vomiting Genitourinary Genitourinary ED: Denies dysuria or hematuria Musculoskeletal Musculoskeletal: Denies back pain or neck pain Integumentary Denies abscess or rash Neurologic Neurologic: Denies headache(s), paresthesias or weakness Psychiatric Psychiatric: Denies anxiety or suicidal thoughts EXAM Physical Exam Const Vital Signs: 03/18/25 11:43 03/18/25 12:02 03/18/25 13:03 Temperature 98.7 F Temperature Source Temporal Pulse Rate 124 H 132 H Respiratory Rate 16 Respiratory Effort Normal Blood Pressure 126/94 H Blood Pressure Mean 104 Pulse Ox 98 Oxygen Delivery Method Room Air Positive well nourished and well developed General Appearance ED: well developed and NAD HEENT Reports moist mucous membranes normocephalic and atraumatic Eyes PERRL and EOMs intact bilaterally Neck full ROM and supple Resp normal respiratory effort and clear to auscultation bilaterally Cardio regular rate, regular rhythm and no murmurs Rate: other Other Details: Mildly tachycardic, resting comfortably GI non-tender and non-distended Auscultation: normoactive bowel sounds Palpation: soft Back/Spine no CVA tenderness General Back: other FROM Extremity normal to inspection General Extremety ED: Negative for edema, pulses abnormal or tenderness General Extremity: Negative for edema or pulses abnormal Neuro oriented x3, CN's II-XII intact bilaterally and no sensory deficits noted Sensorium / Orientation: awake and alert Motor Exam: strength 5/5 throughout Skin no rashes or lesions noted and no wounds MDM MDM MDM Narrative Medical decision making narrative: I reviewed her prior cardiology visit, it appears that the patient was put on metoprolol succinate 25 mg daily. Since it has been a while since her electrolytes and magnesium were checked, I am checking as well observing her for recurrent dysrhythmia. I do not think she needs an ACS workup, this is very likely to have been a recurrent electrical issue. I did review her labs including magnesium and they are normal. Patient ambulated became a little tachycardic but she did not have any recurrent SVT events or palpitations. She feels fine. Resting heart rate now in the 90s. I gave her a dose of metoprolol tartrate 25 mg, she can start the succinate tomorrow morning. She is comfortable that plan following up with cardiology. History & Record Review Additional record(s) reviewed:: Prior outpatient record (Cardiology visit 02/2024) Lab Data Attestation: I reviewed the patient's lab results. Labs: Laboratory Results - last 24 hr 03/18/25 11:59 Sodium 138 Potassium 4.0 Chloride 104 Carbon Dioxide 22.8 Anion Gap 11 BUN 14 Creatinine 0.86 Estim Creat Clear Calc 104.22 Est GFR (MDRD) Non-Af 90 BUN/Creatinine Ratio 16.6 Glucose 99 Calcium 9.6 Magnesium 2.2 Rhythm Strip Rhythm Strip: Sinus Tach Rate: 120 Ectopy: None EKG Initial EKG: Attestation: I personally reviewed and interpreted this EKG as follows: Interpretation: No Acute Injury Pattern and Sinus Tachycardia Comments: Nml axis & intervals; nml EKG Discharge Plan Triage Chief Complaint: Palpitations ED Provider: Emiliano Szymanski Dx/Rx/DC Orders Clinical Impression: PSVT (paroxysmal supraventricular tachycardia) Instructions: ED Understanding Supraventricular Tachycardia (SVT) Prescriptions: New metoprolol succinate 25 mg tablet extended release 24 hr 25 mg PO DAILY Qty: 30 1RF No Action albuterol sulfate 90 mcg/actuation HFA aerosol inhaler 2 puff inhalation Q4H PRN PRN (Reason: wheezing) Pulmicort Flexhaler 180 mcg/actuation aerosol powdr breath activated 2 inh inhalation BID montelukast 10 mg tablet 10 mg PO QHS Primary Care Provider: Dakota Sanchez 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
[2025-03-18 13:01] LABS: Anion Gap 11 (5-15); BUN 14 mg/dL (4-19); BUN/Creat Ratio 16.6 RATIO (10-20); Calcium,Total 9.6 mg/dL (7.6-11.0); Carbon Dioxide 22.8 mmol/L (21.0-32.0); Chloride 104 mmol/L (98-108); Creatinine, Serum 0.86 mg/dL (0.70-1.20); EST Glomerular Filtration Rate 90 (>60); Estimated Creatinine Clearance 104.22 ml/min (50-250); Glucose 99 mg/dL (70-99); Magnesium 2.2 mg/dL (1.5-2.2); Sodium Level 138 mmol/L (133-145)
[2025-03-18 13:03] VITALS: PULSE 132
[2025-03-18 14:49] VITALS: BP 112/85; PULSE 98; RESP 16; TEMP 36.6; O2SAT 98
[2025-03-18] MEDS: Metoprolol Tartrate 25 MG Tablet PO (14:50)
== END 2025-03-18 14:51 | disposition home or self-care (01) ==
PROVIDERS: Emergency Provider Emergency Medicine; PCP Student in an Organized Health Care Education/Training Program; Visit Provider Emergency Medicine
DX: I47.10 Supraventricular tachycardia, unspecified (principal); J45.909 Unspecified asthma, uncomplicated; Z82.49 Family history of ischemic heart disease and other diseases of the circulatory system; Z79.899 Other long term (current) drug therapy
CPT/HCPCS: 80048; 83735; 93005; 99283